=== PATIENT | male | born 1940 | race Two or more races ===

== ENCOUNTER → 2016-09-25 | Outpatient (CLI) | payer OTHER ==
[~2016-09-25] MED LIST: ALBUTEROL SULF 2.5 MG/0.5ML(0.5%) NEB SOLN ONE; ATEN100T OR; ATOR10TA OR; DIPH2.5T73 OR; FLUT125C OR; GEMF600T3 OR; PAROXETIN; [UNRECOGNIZED DRUG - OTHER]
== END | disposition home or self-care (01) ==
LOC: RT 08:30
PROVIDERS: ATTEND Internal Medicine
DX: R06.02 Shortness of breath (principal)
CPT/HCPCS: 94060

== ENCOUNTER → 2017-02-19 | Outpatient (CLI) | payer OTHER ==
[~2017-02-19] VITALS: Ht 177.8 cm; Wt 74.8 kg
[~2017-02-19] MED LIST changes: +ADENOSINE 63 MG in GIVE UN-DILUTED 0 ML IV ONE; -ALBUTEROL SULF 2.5 MG/0.5ML(0.5%) NEB SOLN ONE; -FLUT125C OR; +[UNRECOGNIZED DRUG - CODE] OR
== END | disposition home or self-care (01) ==
LOC: XYW 08:09
PROVIDERS: ATTEND Internal Medicine Cardiovascular Disease
DX: I20.8 Other forms of angina pectoris (principal)
CPT/HCPCS: 78452; 93017; A9500; J0153

== ENCOUNTER → 2017-03-05 | Outpatient (CLI) | payer OTHER ==
[~2017-03-05] MED LIST changes: -ADENOSINE 63 MG in GIVE UN-DILUTED 0 ML IV ONE
[2017-03-05 10:44] LABS: Basophils # (auto) 0 uL; Basophils % (auto) 0.6 % (0.0-2.0); Eosinophils # (auto) 0.1 uL; Eosinophils % (auto) 1.6 % (0.0-7.0); Hemoglobin 15.2 g/dL (13.5-17.5); Lymphocytes # (auto) 1.3 uL; Mean Corpuscular Hemoglobin 33.8 pg (28.0-32.0); Mean Corpuscular Hgb Conc. 33.8 g/dL (32.0-36.0); Mean Platelet Volume 7.2 fL (6.9-10.8); Monocytes # (auto) 0.6 uL; Monocytes % (auto) 9.3 % (0.0-12.0); Neutrophils # (auto) 4.2 uL; Neutrophils % (auto) 67.5 % (37.0-80.0); Nucleated Red Blood Cells % 0.1 %; Platelet Count (auto) 275 10^3/uL (140-450); Red Cell Distribution Width 12.7 % (11.8-14.3); White Blood Cell 6.3 10^3/uL (4.4-10.8)
[2017-03-05 11:09] LABS: Albumin 4.5 g/dL (3.4-5.0); BUN/Creatinine Ratio 22.4; Bilirubin, Total 0.7 mg/dL (0.2-1.0); Potassium 4.1 mmol/L (3.5-5.1); Total Protein 7.9 g/dL (6.4-8.2)
== END | disposition home or self-care (01) ==
LOC: LAB 10:24
PROVIDERS: ATTEND Radiology Radiation Oncology
DX: K51.90 Ulcerative colitis, unspecified, without complications (principal); C61 Malignant neoplasm of prostate
CPT/HCPCS: 36415; 80053; 84153; 84154; 85025

== ENCOUNTER → 2017-04-22 | Outpatient (CLI) | payer OTHER | END | disposition home or self-care (01) | LOC: LAB 08:43 | PROVIDERS: ATTEND Radiology Radiation Oncology | DX: C61 Malignant neoplasm of prostate (principal) | CPT/HCPCS: 84153 ==

== ENCOUNTER → 2017-07-25 | Outpatient (CLI) | payer OTHER ==
[2017-07-25 09:30] LABS: Basophils # (auto) 0 uL; Basophils % (auto) 0.6 % (0.0-2.0); Eosinophils # (auto) 0.2 uL; Eosinophils % (auto) 5.2 % (0.0-7.0); Hematocrit 45.8 % (41.0-53.0); Hemoglobin 15.6 g/dL (13.5-17.5); Lymphocytes # (auto) 1.1 uL; Lymphocytes % (auto) 25.4 % (10.0-50.0); Mean Corpuscular Hemoglobin 33.9 pg (28.0-32.0); Mean Corpuscular Hgb Conc. 34.1 g/dL (32.0-36.0); Mean Corpuscular Volume 99.6 fL (80.0-100.0); Monocytes # (auto) 0.5 uL; Monocytes % (auto) 10.3 % (0.0-12.0); Neutrophils # (auto) 2.6 uL; Neutrophils % (auto) 58.5 % (37.0-80.0); Nucleated Red Blood Cells % 0.1 %; Platelet Count (auto) 234 10^3/uL (140-450); Red Blood Cells 4.59 10^6/uL (4.5-5.90); Red Cell Distribution Width 12.9 % (11.8-14.3); White Blood Cell 4.5 10^3/uL (4.4-10.8)
[2017-07-25 09:58] LABS: Albumin 4.4 g/dL (3.4-5.0)
[2017-07-25 10:00] LABS: BUN/Creatinine Ratio 19.6
[2017-07-25 10:02] LABS: Ferritin 350.9 ng/mL (10-322)
[2017-07-25 10:03] LABS: Folate (Folic Acid) > 24.00 ng/mL (5.38-24)
[2017-07-25 10:10] LABS: Prostate Specific Antigen 9.28 ng/mL (0.0-4.0)
[2017-07-25 10:29] LABS: Bilirubin, Total 0.5 mg/dL (0.2-1.0); Calcium 9.2 mg/dL (8.5-10.1); Total Protein 7.6 g/dL (6.4-8.2)
== END | disposition home or self-care (01) ==
LOC: LAB 08:38
PROVIDERS: ATTEND Internal Medicine
DX: Z12.5 Encounter for screening for malignant neoplasm of prostate (principal); I10 Essential (primary) hypertension; E78.5 Hyperlipidemia, unspecified; E03.9 Hypothyroidism, unspecified
CPT/HCPCS: 36415; 80053; 80061; 82306; 82607; 82728; 82746; 84153; 84154; 84443; 85025

== ENCOUNTER → 2017-08-29 | Outpatient (CLI) | payer OTHER ==
[2017-08-29 11:43] LABS: Basophils # (auto) 0 uL; Basophils % (auto) 0.5 % (0.0-2.0); Eosinophils # (auto) 0.1 uL; Hematocrit 44.2 % (41.0-53.0); Hemoglobin 15.4 g/dL (13.5-17.5); Lymphocytes # (auto) 1.1 uL; Lymphocytes % (auto) 21.1 % (10.0-50.0); Mean Corpuscular Hgb Conc. 34.8 g/dL (32.0-36.0); Mean Corpuscular Volume 97.5 fL (80.0-100.0); Monocytes # (auto) 0.4 uL; Monocytes % (auto) 8.4 % (0.0-12.0); Neutrophils # (auto) 3.6 uL; Platelet Count (auto) 249 10^3/uL (140-450); Red Blood Cells 4.53 10^6/uL (4.5-5.90); White Blood Cell 5.3 10^3/uL (4.4-10.8)
[2017-08-29 12:20] LABS: Albumin 4.6 g/dL (3.4-5.0); BUN/Creatinine Ratio 18.4; Bilirubin, Total 0.8 mg/dL (0.2-1.0); Potassium 3.9 mmol/L (3.5-5.1)
== END | disposition home or self-care (01) ==
LOC: LAB 11:22
PROVIDERS: ATTEND Internal Medicine
DX: C61 Malignant neoplasm of prostate (principal)
CPT/HCPCS: 36415; 80053; 83615; 84153; 84154; 85025

== ENCOUNTER → 2017-09-12 | Outpatient (CLI) | payer OTHER | END | disposition home or self-care (01) | LOC: LAB 09:16 | PROVIDERS: ATTEND Internal Medicine | DX: Z01.812 Encounter for preprocedural laboratory examination (principal); I10 Essential (primary) hypertension; E78.5 Hyperlipidemia, unspecified; Z85.46 Personal history of malignant neoplasm of prostate | CPT/HCPCS: 36415; 82565; 84520 ==

== ENCOUNTER → 2017-09-18 | Outpatient (CLI) | payer OTHER ==
[~2017-09-18] MED LIST changes: +ASPI81TA27 PO; +BICA50TA7 PO; +LISI-646 PO; +PAR20T PO; +SULF500T8 PO
== END | disposition home or self-care (01) ==
LOC: XY 08:09
PROVIDERS: ATTEND Internal Medicine
DX: C61 Malignant neoplasm of prostate (principal)
CPT/HCPCS: 78306; A9503

== ENCOUNTER → 2017-09-18 | Outpatient (CLI) | payer OTHER ==
[2017-09-18 12:54] LABS: Basophils # (auto) 0 uL; Basophils % (auto) 0.4 % (0.0-2.0); Eosinophils # (auto) 0.1 uL; Eosinophils % (auto) 1.4 % (0.0-7.0); Hematocrit 48.3 % (41.0-53.0); Hemoglobin 16.6 g/dL (13.5-17.5); Lymphocytes # (auto) 1.4 uL; Lymphocytes % (auto) 23.2 % (10.0-50.0); Mean Corpuscular Hemoglobin 33.9 pg (28.0-32.0); Mean Corpuscular Hgb Conc. 34.4 g/dL (32.0-36.0); Mean Corpuscular Volume 98.7 fL (80.0-100.0); Monocytes # (auto) 0.6 uL; Monocytes % (auto) 9.6 % (0.0-12.0); Neutrophils # (auto) 3.9 uL; Neutrophils % (auto) 65.4 % (37.0-80.0); Platelet Count (auto) 247 10^3/uL (140-450); Red Blood Cells 4.89 10^6/uL (4.5-5.90); White Blood Cell 5.9 10^3/uL (4.4-10.8)
[2017-09-18 12:57] LABS: Albumin 4.9 g/dL (3.4-5.0); Bilirubin, Total 0.6 mg/dL (0.2-1.0); Calcium 9.6 mg/dL (8.5-10.1); Potassium 4.8 mmol/L (3.5-5.1); Total Protein 8.7 g/dL (6.4-8.2)
== END | disposition home or self-care (01) ==
LOC: LAB 12:04
PROVIDERS: ATTEND Internal Medicine
DX: C61 Malignant neoplasm of prostate (principal); I10 Essential (primary) hypertension; E78.5 Hyperlipidemia, unspecified
CPT/HCPCS: 36415; 80053; 83615; 84153; 85025

== ENCOUNTER → 2017-09-23 | Day surgery (SDC) | payer OTHER ==
[2017-09-19 10:15] LABS: Basophils # (auto) 0 uL; Basophils % (auto) 0.7 % (0.0-2.0); Eosinophils # (auto) 0.2 uL; Eosinophils % (auto) 4.2 % (0.0-7.0); Hematocrit 44.1 % (41.0-53.0); Hemoglobin 15.3 g/dL (13.5-17.5); Lymphocytes # (auto) 0.9 uL; Lymphocytes % (auto) 20.9 % (10.0-50.0); Mean Corpuscular Hemoglobin 33.7 pg (28.0-32.0); Mean Corpuscular Hgb Conc. 34.7 g/dL (32.0-36.0); Mean Corpuscular Volume 97.2 fL (80.0-100.0); Monocytes # (auto) 0.4 uL; Monocytes % (auto) 9.5 % (0.0-12.0); Neutrophils # (auto) 2.7 uL; Neutrophils % (auto) 64.7 % (37.0-80.0); Nucleated Red Blood Cells % 0.1 %; Platelet Count (auto) 230 10^3/uL (140-450); Red Blood Cells 4.53 10^6/uL (4.5-5.90); Red Cell Distribution Width 12.8 % (11.8-14.3); Urine Bacteria NONE SEEN /hpf (None Seen); Urine Blood Negative /uL (Negative); Urine Mucus FEW (None Seen); Urine Specific Gravity 1.036 (1.001-1.035); Urine WBC <1 /hpf (0 - 3); White Blood Cell 4.2 10^3/uL (4.4-10.8)
[2017-09-19 10:32] LABS: Albumin 4.3 g/dL (3.4-5.0); BUN/Creatinine Ratio 14.4; Bilirubin, Total 0.6 mg/dL (0.2-1.0); Calcium 8.9 mg/dL (8.5-10.1); Potassium 3.8 mmol/L (3.5-5.1); Total Protein 7.5 g/dL (6.4-8.2)
[2017-09-19 10:33] LABS: INR 0.96 (0.9-1.15); Partial Thromboplastin Time 24.4 sec (22.64-33.71); Prothrombin Time 10.5 sec (9.37-12.3)
[~2017-09-23] VITALS: Ht 177.8 cm; Wt 77.1 kg
[~2017-09-23] MED LIST changes: -ATEN100T OR; +CIPROFLOXACIN 400MG/200ML 200 ML IV ONE; +DEXAMETHASONE SOD PHOS 10MG/1ML VIAL INJ ONE; -DIPH2.5T73 OR; +KETOROLAC TROMETH 30 MG/ML 1ML VIAL IV ONE; +LABETALOL HCL 5 MG/ML 4ML SYRINGE IV PRN; +MIDAZOLAM HCL 1MG/1ML-2 ML VIAL IV PRN; +MIDAZOLAM HCL 1MG/1ML-2 ML VIAL ONE; +MORPHINE SULFATE 8mg/ml INJ SDV IV ONE; +MORPHINE SULFATE 8mg/ml INJ SDV IV PRN; +ONDANSETRON HCL 4 MG/2 ML VIAL IV ONE; -PAROXETIN; +PROPOFOL 10 MG/ML 20 ML IV ONE; -[UNRECOGNIZED DRUG - CODE] OR; -[UNRECOGNIZED DRUG - OTHER]; +ePHEDrine SULFATE 50 MG/ML AMP IV PRN; +fentaNYL CITRATE 100 MCG/2 ML VL IV ONE; +fentaNYL CITRATE 100 MCG/2 ML VL ONE
[2017-09-23 08:31] VITALS: BP 130/73
== END | disposition home or self-care (01) ==
LOC: SUR 06:46
PROVIDERS: ATTEND Urology
DX: R97.20 Elevated prostate specific antigen [PSA] (principal); I10 Essential (primary) hypertension; J44.9 Chronic obstructive pulmonary disease, unspecified; I25.10 Atherosclerotic heart disease of native coronary artery without angina pectoris; Z87.891 Personal history of nicotine dependence; E78.5 Hyperlipidemia, unspecified
CPT/HCPCS: 36415; 55706; 80053; 81001; 85025; 85610; 85730; 88304; 88342; J0744; J1100; J2250; J2704; J3010

== ENCOUNTER → 2018-02-28 | Outpatient (CLI) | payer OTHER ==
[~2018-02-28] MED LIST changes: +BICA50TA13 PO; -BICA50TA7 PO; -CIPROFLOXACIN 400MG/200ML 200 ML IV ONE; -DEXAMETHASONE SOD PHOS 10MG/1ML VIAL INJ ONE; -GEMF600T3 OR; +GEMF600T7 OR; -KETOROLAC TROMETH 30 MG/ML 1ML VIAL IV ONE; -LABETALOL HCL 5 MG/ML 4ML SYRINGE IV PRN; -MIDAZOLAM HCL 1MG/1ML-2 ML VIAL IV PRN; -MIDAZOLAM HCL 1MG/1ML-2 ML VIAL ONE; -MORPHINE SULFATE 8mg/ml INJ SDV IV ONE; -MORPHINE SULFATE 8mg/ml INJ SDV IV PRN; -ONDANSETRON HCL 4 MG/2 ML VIAL IV ONE; -PROPOFOL 10 MG/ML 20 ML IV ONE; -ePHEDrine SULFATE 50 MG/ML AMP IV PRN; -fentaNYL CITRATE 100 MCG/2 ML VL IV ONE; -fentaNYL CITRATE 100 MCG/2 ML VL ONE
[2018-02-28 10:30] LABS: Basophils # (auto) 0 uL; Basophils % (auto) 0.5 % (0.0-2.0); Eosinophils # (auto) 0.1 uL; Eosinophils % (auto) 2.3 % (0.0-7.0); Hematocrit 45.6 % (41.0-53.0); Hemoglobin 15.5 g/dL (13.5-17.5); Lymphocytes # (auto) 1.1 uL; Lymphocytes % (auto) 17.1 % (10.0-50.0); Mean Corpuscular Hemoglobin 33.6 pg (28.0-32.0); Mean Corpuscular Volume 98.9 fL (80.0-100.0); Monocytes # (auto) 0.5 uL; Monocytes % (auto) 8.5 % (0.0-12.0); Neutrophils # (auto) 4.5 uL; Neutrophils % (auto) 71.6 % (37.0-80.0); Nucleated Red Blood Cells % 0.2 %; Platelet Count (auto) 259 10^3/uL (140-450); Red Blood Cells 4.61 10^6/uL (4.5-5.90); Red Cell Distribution Width 12.6 % (11.8-14.3); White Blood Cell 6.3 10^3/uL (4.4-10.8)
[2018-02-28 10:32] LABS: Urine Blood Negative /uL (Negative); Urine Specific Gravity 1.033 (1.001-1.035)
[2018-02-28 11:01] LABS: BUN/Creatinine Ratio 18.3; Calcium 9.5 mg/dL (8.5-10.1); Potassium 4.4 mmol/L (3.5-5.1)
== END | disposition home or self-care (01) ==
LOC: LAB 10:06
PROVIDERS: ATTEND Internal Medicine
DX: Z01.812 Encounter for preprocedural laboratory examination (principal)
CPT/HCPCS: 36415; 80048; 81003; 85025

== ENCOUNTER → 2018-03-25 | Outpatient (CLI) | payer OTHER ==
[2018-03-25 09:32] LABS: Basophils # (auto) 0 uL; Basophils % (auto) 0.6 % (0.0-2.0); Eosinophils # (auto) 0.1 uL; Eosinophils % (auto) 2.6 % (0.0-7.0); Hematocrit 41.8 % (41.0-53.0); Hemoglobin 14.5 g/dL (13.5-17.5); Lymphocytes # (auto) 0.7 uL; Lymphocytes % (auto) 20.4 % (10.0-50.0); Mean Corpuscular Hgb Conc. 34.8 g/dL (32.0-36.0); Mean Corpuscular Volume 97.7 fL (80.0-100.0); Monocytes # (auto) 0.3 uL; Monocytes % (auto) 9.4 % (0.0-12.0); Neutrophils # (auto) 2.3 uL; Nucleated Red Blood Cells % 0.1 %; Platelet Count (auto) 204 10^3/uL (140-450); Red Blood Cells 4.27 10^6/uL (4.5-5.90); Red Cell Distribution Width 12.7 % (11.8-14.3); White Blood Cell 3.5 10^3/uL (4.4-10.8)
[2018-03-25 10:30] LABS: Albumin 4.3 g/dL (3.4-5.0); Calcium 8.9 mg/dL (8.5-10.1); Potassium 3.9 mmol/L (3.5-5.1)
[2018-03-25 10:34] LABS: BUN/Creatinine Ratio 13.3; Bilirubin, Total 0.8 mg/dL (0.2-1.0); Total Protein 7.5 g/dL (6.4-8.2)
== END | disposition home or self-care (01) ==
LOC: LAB 09:16
PROVIDERS: ATTEND Internal Medicine
DX: C61 Malignant neoplasm of prostate (principal)
CPT/HCPCS: 36415; 80053; 83615; 84153; 85025

== ENCOUNTER → 2018-04-29 | Outpatient (CLI) | payer OTHER ==
[2018-04-29 09:18] LABS: Basophils # (auto) 0 uL; Eosinophils # (auto) 0.1 uL; Eosinophils % (auto) 4.1 % (0.0-7.0); Hemoglobin 14.9 g/dL (13.5-17.5); Lymphocytes # (auto) 0.7 uL; Mean Corpuscular Hemoglobin 35.2 pg (28.0-32.0); Mean Corpuscular Hgb Conc. 34.9 g/dL (32.0-36.0); Monocytes # (auto) 0.3 uL; Nucleated Red Blood Cells % 0.1 %; White Blood Cell 3.1 10^3/uL (4.4-10.8)
[2018-04-29 09:19] LABS: Basophils % (auto) 0.7 % (0.0-2.0); Hematocrit 42.6 % (41.0-53.0); Lymphocytes % (auto) 21.7 % (10.0-50.0); Mean Corpuscular Volume 100.8 fL (80.0-100.0); Monocytes % (auto) 9.5 % (0.0-12.0); Platelet Count (auto) 219 10^3/uL (140-450); Red Blood Cells 4.22 10^6/uL (4.5-5.90); Red Cell Distribution Width 12.7 % (11.8-14.3)
[2018-04-29 09:21] LABS: Urine Blood Negative /uL (Negative); Urine Specific Gravity 1.036 (1.001-1.035)
[2018-04-29 09:51] LABS: Albumin 4.5 g/dL (3.4-5.0); Potassium 3.8 mmol/L (3.5-5.1)
[2018-04-29 09:56] LABS: BUN/Creatinine Ratio 20.3; Bilirubin, Total 0.8 mg/dL (0.2-1.0); Total Protein 7.6 g/dL (6.4-8.2)
[2018-04-29 10:00] LABS: INR 3.31 (0.9-1.15)
[2018-04-29 11:03] LABS: Partial Thromboplastin Time > 170.00 sec (23.78-33.04)
== END | disposition home or self-care (01) ==
LOC: LAB 08:54
PROVIDERS: ATTEND Specialist
DX: Z01.812 Encounter for preprocedural laboratory examination (principal); H25.12 Age-related nuclear cataract, left eye; D68.311 Acquired hemophilia; Z79.01 Long term (current) use of anticoagulants
CPT/HCPCS: 36415; 80053; 81003; 85025; 85610; 85730

== ENCOUNTER → 2018-05-26 | Outpatient (CLI) | payer OTHER ==
[~2018-05-26] MED LIST changes: +FOLI1TAB6 PO; +MELA10CA OR
[2018-05-26 12:09] LABS: Basophils # (auto) 0 uL; Hemoglobin 15.8 g/dL (13.5-17.5); Lymphocytes # (auto) 0.9 uL; Monocytes # (auto) 0.4 uL
[2018-05-26 12:14] LABS: Basophils % (auto) 0.4 % (0.0-2.0); Eosinophils # (auto) 0.2 uL; Eosinophils % (auto) 3.4 % (0.0-7.0); Hematocrit 45.8 % (41.0-53.0); Lymphocytes % (auto) 20.8 % (10.0-50.0); Mean Corpuscular Hemoglobin 34.5 pg (28.0-32.0); Mean Corpuscular Hgb Conc. 34.5 g/dL (32.0-36.0); Monocytes % (auto) 9.7 % (0.0-12.0); Neutrophils # (auto) 2.9 uL; Neutrophils % (auto) 65.7 % (37.0-80.0); Platelet Count (auto) 257 10^3/uL (140-450); Red Blood Cells 4.58 10^6/uL (4.5-5.90); Red Cell Distribution Width 12.1 % (11.8-14.3); White Blood Cell 4.4 10^3/uL (4.4-10.8)
[2018-05-26 12:16] LABS: INR 0.98 (0.9-1.15); Prothrombin Time 10.5 sec (9.27-12.13)
[2018-05-26 13:27] LABS: Albumin 4.7 g/dL (3.4-5.0); BUN/Creatinine Ratio 19.8; Calcium 9.6 mg/dL (8.5-10.1); Potassium 4.2 mmol/L (3.5-5.1)
[2018-05-26 13:29] LABS: Bilirubin, Total 0.9 mg/dL (0.2-1.0); Total Protein 8.1 g/dL (6.4-8.2)
== END | disposition home or self-care (01) ==
LOC: LAB 11:10
PROVIDERS: ATTEND Internal Medicine
DX: Z01.818 Encounter for other preprocedural examination (principal)
CPT/HCPCS: 36415; 80053; 85025; 85610; 85730

== ENCOUNTER 2018-05-28 09:26 | Inpatient (IN) | payer OTHER ==
[~2018-05-28] VITALS: Ht 177.8 cm; Wt 72.2 kg
[2018-05-28] MEDS: LISINOPRIL 20 MG TAB PO SCH (10:00)
[2018-05-28] MEDS: FOLIC ACID 1 MG TAB PO SCH (10:00)
[2018-05-28] MEDS ORDERED: IOHEXOL 350 MG/ML 100ML IJ ONE (12:05)
[2018-05-28] MEDS ORDERED: LIDOCAINE 2%HCL (LOCAL ANESTH.) INJ 20ML MDV ONE (12:05)
[2018-05-28] MEDS ORDERED: fentaNYL CITRATE 100 MCG/2 ML VL ONE (12:36)
[2018-05-28] MEDS ORDERED: MIDAZOLAM HCL 1MG/1ML-2 ML VIAL ONE (12:36)
[2018-05-28] MEDS ORDERED: SODIUM CHL 0.9% 0 ML ONE (12:36)
[2018-05-28] MEDS ORDERED: ANGIOMAX 250 MG VIAL IV ONE (12:36)
[2018-05-28] MEDS ORDERED: ACETAMINOPHEN 500 MG TAB PO PRN (13:15)
[2018-05-28] MEDS ORDERED: LORazepam 0.5 MG TAB PO PRN (13:15)
[2018-05-28] MEDS ORDERED: ZOLPIDEM TARTRATE 5 MG TAB PO PRN (13:15)
[2018-05-28] MEDS ORDERED: NITROGLYCERIN 0.4 MG SL TAB SL PRN (13:15)
[2018-05-28] MEDS ORDERED: HYDROcodone-ACET 5/325MG TAB PO PRN (13:15)
[2018-05-28] MEDS ORDERED: MORPHINE SULFATE 4 MG/ML SYR/VIAL IV PRN (13:15)
[2018-05-28] MEDS ORDERED: ENOXAPARIN SOD 100 MG/1 ML SYRINGE SC ONE (13:45)
[2018-05-28] MEDS ORDERED: PARoxetine 20 MG TAB PO ONE (13:45)
[2018-05-28] MEDS ORDERED: LISINOPRIL 20 MG TAB PO ONE (13:45)
[2018-05-28] MEDS ORDERED: BICALUTAMIDE 50 MG TAB PO ONE (13:45)
[2018-05-28] MEDS ORDERED: GEMFIBROZIL 600 MG TAB PO ONE (13:45)
[2018-05-28] MEDS ORDERED: FOLIC ACID 1 MG TAB PO ONE (13:45)
[2018-05-28] MEDS ORDERED: BICALUTAMIDE 50 MG PO SCH (14:00)
[2018-05-28] MEDS: SULFASALAZINE 500 MG TAB PO SCH ×2 (14:00→21:25)
--- NOTE | 2018-05-28 15:47 | NUR ---
Telemetry admit from garage laborer REBECCA HENAO admitted to Telemetry unit after SBAR received. Patient oriented to KALIE BONILLA, RN primary RN, unit, room, bed, and unit policies regarding patient care and visiting hours. Patient now on continuous telemetry monitoring, tele box # 9 and telemetry reading on arrival to unit is Sinus Rhythm 56 with BBB. Patient placed on bedside oxygen, weighed by bedscale and encouraged to call if they need something. All questions and concerns addressed, patient verbalized understanding.
[2018-05-28 16:45] VITALS: BP_SYST 140; BP_SYST 148; BP_DIAS 60; BP_DIAS 75
--- NOTE | 2018-05-28 19:30 | NUR ---
OPENING SHIFT NOTE RECEIVED PATIENT LYING IN BED, AWAKE, ALERT, ORIENTED X4. NO S/S OF RESPIRATORY DISTRESS, DENIES SOB AND CHEST PAIN. S/P LEFT HEART CATH TODAY, WITH DRESSING ON THE RIGHT GROIN, DRY, INTACT, NO BLEEDING. ORIENTED ON PLAN OF CARE. BED IS LOCKED AND IN LOWEST LEVEL, SIDE RAILS UP X2, CALL LIGHT WITHIN REACH. WILL CONTINUE TO MONITOR
[2018-05-28] MEDS: GEMFIBROZIL 600 MG TAB PO SCH (21:25)
[2018-05-28] MEDS: ATORVASTATIN 20 MG TAB PO SCH (21:26)
[2018-05-28] MEDS: ENOXAPARIN SOD 100 MG/1 ML SYRINGE SC SCH (21:27)
[2018-05-28 21:48] VITALS: BP 148/72
[2018-05-29 00:10] VITALS: BP_SYST 129; BP_SYST 132; BP_DIAS 62; BP_DIAS 69
[2018-05-29 05:08] VITALS: BP_SYST 123; BP_SYST 128; BP_DIAS 53; BP_DIAS 62
[2018-05-29] MEDS: SULFASALAZINE 500 MG TAB PO SCH ×3 (05:59→22:01)
[2018-05-29] MEDS ORDERED: VANCOMYCIN 1GM/250ML 250 ML IV ONE (07:00)
--- NOTE | 2018-05-29 07:15 | NUR ---
OPENING SHIFT NOTE ASSUMED CARE OF PATIENT FROM MANAGER NEW PRODUCT RN HALI. PATIENT IS AWAKE AND ALERT X4. PATIENT HAS NO S/S OF DISTRESS/SOB OR PAIN. INSTRUCTED PATIENT ON POC, PATIENT VERBALIZED UNDERSTANDING. BED IS IN LOWEST POSITION WITH SIDE RAILS RAISED X2, BED WHEELS LOCKED, AND CALL LIGHT WITHIN REACH. WILL CONTINUE TO MONITOR
--- NOTE | 2018-05-29 07:29 | NUR ---
REPORT GIVEN TO AM SHIFT RN
[2018-05-29 07:46] VITALS: BP 123/60
[2018-05-29] MEDS ORDERED: ceFAZolin 1GM 2 GM in D5W 5% 50 ML IV ONE (08:00)
[2018-05-29 08:53] VITALS: BP_SYST 123; BP_SYST 126; BP_DIAS 60; BP_DIAS 66
[2018-05-29] MEDS: FOLIC ACID 1 MG TAB PO SCH (09:56)
[2018-05-29] MEDS: LISINOPRIL 20 MG TAB PO SCH (09:57)
[2018-05-29] MEDS: GEMFIBROZIL 600 MG TAB PO SCH ×2 (09:58→22:02)
[2018-05-29] MEDS: ENOXAPARIN SOD 100 MG/1 ML SYRINGE SC SCH (09:58)
[2018-05-29] MEDS ORDERED: PARoxetine 20 MG TAB PO SCH (10:00)
[2018-05-29] MEDS ORDERED: BICALUTAMIDE 50 MG TAB PO SCH (10:00)
--- NOTE | 2018-05-29 13:00 | NUR ---
PATIENT'S HOME MEDICATIONS TAKEN TO PHARMACY
[2018-05-29 14:04] VITALS: BP_SYST 135; BP_DIAS 70; BP_DIAS 76
--- NOTE | 2018-05-29 15:50 | NUR ---
MD MALIK AND LAB AT BEDSIDE. INFORMED MD OF PATIENT'S ADVANCE DIRECTIVES AND UPDATED MD ON PATIENT'S STATUS. MD IS AWARE. NO NEW ORDERS GIVEN AT THIS TIME
[2018-05-29 16:14] LABS: Urine Bacteria NONE SEEN /hpf (None Seen); Urine Blood Negative /uL (Negative); Urine Specific Gravity 1.012 (1.001-1.035); Urine WBC 1 /hpf (0 - 3)
[2018-05-29 16:15] LABS: Basophils # (auto) 0 uL; Mean Corpuscular Hemoglobin 34.3 pg (28.0-32.0); Monocytes # (auto) 0.5 uL; Red Cell Distribution Width 12.2 % (11.8-14.3)
[2018-05-29 16:17] LABS: Eosinophils # (auto) 0.1 uL; Eosinophils % (auto) 3.5 % (0.0-7.0); Hematocrit 41.9 % (41.0-53.0); Hemoglobin 14.4 g/dL (13.5-17.5); Mean Corpuscular Hgb Conc. 34.3 g/dL (32.0-36.0); Mean Corpuscular Volume 99.9 fL (80.0-100.0); Monocytes % (auto) 11.5 % (0.0-12.0); Neutrophils # (auto) 2.6 uL; Platelet Count (auto) 205 10^3/uL (140-450); White Blood Cell 4.3 10^3/uL (4.4-10.8)
--- NOTE | 2018-05-29 16:20 | NUR ---
MD WORLEY AT BEDSIDE. INFORMING PATIENT OF SURGERY. UPDATED MD ON PATIENT'S STATUS. WILL FOLLOW THROUGH WITH NEW ORDERS
[2018-05-29 16:22] VITALS: BP_SYST 132; BP_SYST 136; BP_DIAS 64; BP_DIAS 70
[2018-05-29 16:22] LABS: Partial Thromboplastin Time 30.1 sec (23.78-33.04); Prothrombin Time 10.7 sec (9.27-12.13)
[2018-05-29 16:32] LABS: Albumin 4.3 g/dL (3.4-5.0); Calcium 9.1 mg/dL (8.5-10.1); Potassium 4.2 mmol/L (3.5-5.1)
[2018-05-29 16:37] LABS: BUN/Creatinine Ratio 17.3; Bilirubin, Total 0.6 mg/dL (0.2-1.0); Total Protein 7.6 g/dL (6.4-8.2)
--- NOTE | 2018-05-29 19:30 | NUR ---
OPENING SHIFT NOTE RECEIVED PATIENT LYING IN BED, AWAKE, ALERT, ORIENTED X4, AMBULATORY. NO S/S OF RESPIRATORY DISTRESS, DENIES SOB AND CHEST PAIN. ORIENTED ON PLAN OF CARE. BED IS LOCKED AND IN LOWEST LEVEL, SIDE RAILS UP X2, CALL LIGHT WITHIN REACH. WILL CONTINUE TO MONITOR
--- NOTE | 2018-05-29 19:39 | NUR ---
CLOSING SHIFT NOTE ENDORSED CARE TO PATIENT RELATIONS COORDINATOR RN HALI. PATIENT HAS NO S/S OF DISTRESS/SOB OR PAIN. INFORMED RN PATIENT'S ANTIBIOTICS ARE ON THE NON FRIDGE IV CASSETTE IN [facility] AND NEED TO BE TAKEN DOWN WITH PATIENT ONCE HE IS TRANSFERRED TO ICU. RN IS AWARE
[2018-05-29] MEDS ORDERED: ENOXAPARIN SOD 80 MG/0.8ML SYRINGE SC SCH (22:00)
[2018-05-29] MEDS ORDERED: ASCORBIC ACID 500 MG TAB PO ONE (22:00)
--- NOTE | 2018-05-29 22:00 | NUR ---
MRSA SWAB SAMPLE SENT TO LAB
[2018-05-29] MEDS: ATORVASTATIN 20 MG TAB PO SCH (22:02)
--- NOTE | 2018-05-29 22:21 | NUR ---
REPORT RECEIVED FROM AUDIT MGR HALI VIA TELEPHONE. PT AWAITING TRANSPORT TO ICU BED 111.
--- NOTE | 2018-05-29 22:45 | NUR ---
REPORT GIVEN TO NEGRITO CHEW, TRANSFERRED TO ICU
--- NOTE | 2018-05-29 23:55 | NUR ---
PT WATCHED PRE-OP OPEN HEART INFORMATIONAL VIDEO. ALL QUESTIONS ANSWERED.
[2018-05-30] VITALS (69 sets, daily range): BP systolic 0–172; BP diastolic 0–99
[2018-05-30] MEDS ORDERED: CHLORHEXIDINE 4% TOPICAL soln 237ML TOP ONE (02:00)
[2018-05-30 03:57] LABS: BUN/Creatinine Ratio 19.6; Calcium 8.5 mg/dL (8.5-10.1); Potassium 3.9 mmol/L (3.5-5.1)
[2018-05-30 04:03] LABS: INR 0.96 (0.9-1.15); Partial Thromboplastin Time 23.9 sec (23.78-33.04); Prothrombin Time 10.3 sec (9.27-12.13)
[2018-05-30 04:30] LABS: Basophils # (auto) 0 uL; Eosinophils # (auto) 0.2 uL; Monocytes # (auto) 0.5 uL; Red Cell Distribution Width 12.1 % (11.8-14.3); White Blood Cell 4.8 10^3/uL (4.4-10.8)
[2018-05-30 04:35] LABS: Basophils % (auto) 0.3 % (0.0-2.0); Eosinophils % (auto) 3.6 % (0.0-7.0); Hematocrit 41.7 % (41.0-53.0); Hemoglobin 13.8 g/dL (13.5-17.5); Lymphocytes % (auto) 20.5 % (10.0-50.0); Mean Corpuscular Hemoglobin 33.8 pg (28.0-32.0); Mean Corpuscular Hgb Conc. 33.1 g/dL (32.0-36.0); Mean Corpuscular Volume 102.1 fL (80.0-100.0); Monocytes % (auto) 9.9 % (0.0-12.0); Neutrophils # (auto) 3.2 uL; Neutrophils % (auto) 65.7 % (37.0-80.0); Platelet Count (auto) 180 10^3/uL (140-450); Red Blood Cells 4.09 10^6/uL (4.5-5.90)
[2018-05-30] MEDS ORDERED: CHLORHEXIDINE 0.12% ORAL rinse 473ML MT ONE (05:00)
[2018-05-30] MEDS: SULFASALAZINE 500 MG TAB PO SCH (06:00)
[2018-05-30] MEDS ORDERED: NITROGLYCERIN 50MG/250ML 250 ML IV ONE (06:05)
[2018-05-30] MEDS ORDERED: PAPAVERINE HCL 60 MG/2 ML 2ML VIAL ONE (06:19)
[2018-05-30] MEDS ORDERED: NEOMYCIN-BACITRACIN-POLYM 15GM TOP OINT TOP ONE (06:19)
[2018-05-30] MEDS ORDERED: HEPARIN 1,000 UNITS/ml 1ML VIAL ONE (06:19)
[2018-05-30] MEDS ORDERED: BACITRACIN INJ 50000 UNIT VIAL ONE (06:20)
[2018-05-30] MEDS ORDERED: VANCOMYCIN 1GM/250ML 250 ML IV ONE (07:00)
[2018-05-30] MEDS ORDERED: ceFAZolin 1GM 2 GM in D5W 5% 50 ML IV ONE (07:00)
--- NOTE | 2018-05-30 07:35 | NUR ---
PT TRANSFERRED TO OR, ENDORSED CARE TO EQUINE SCIENCE INSTRUCTORNEGRITO TORRES.
[2018-05-30] MEDS ORDERED: MIDAZOLAM HCL 1MG/1ML-2 ML VIAL ONE (07:55)
[2018-05-30] MEDS ORDERED: fentaNYL CITRATE 10 ML ONE (07:55)
[2018-05-30] MEDS ORDERED: PROPOFOL 10 MG/ML 20 ML IV ONE ×3 (07:55→13:47)
[2018-05-30] MEDS ORDERED: ROCURONIUM 10MG/ML 10ML VIAL IV ONE (07:55)
[2018-05-30] MEDS ORDERED: InsuLIN R (HUMAN) 100 UNITS in SODIUM CHL 0.9% 99 ML IV ONE (08:00)
[2018-05-30] MEDS ORDERED: TRANEXAMIC ACID 1,000 mg/10ml INJ VIAL IV ONE ×2 (08:00→17:09)
[2018-05-30] MEDS ORDERED: ACCU-CHEK COMFORT CURVE STRIP VI ONE (08:00)
[2018-05-30] MEDS ORDERED: PHENYLEPHRINE INJ 20 MG in SODIUM CHL 0.9% 250 ML IV ONE (08:00)
[2018-05-30] MEDS ORDERED: TRANEXAMIC ACID 1,000 MG in SODIUM CHL 0.9% 100 ML IV ONE (08:00)
[2018-05-30] MEDS ORDERED: HEPARIN 30000 UNITS in SODIUM CHLORIDE 0.9% 1000 ML IV ONE (08:00)
[2018-05-30] MEDS ORDERED: EPINEPHrine HCL 4 MG in D5W 5% 250 ML IV ONE (08:00)
[2018-05-30] MEDS ORDERED: NOREPINEPHRINE 8 MG/250ML KIT 250 ML IV ONE (08:00)
[2018-05-30] MEDS ORDERED: ALBUMIN 25% 200 ML IV ONE (08:22)
[2018-05-30] MEDS ORDERED: PLASMA-LYTE A pH7.4 8,000 ML INJ ONE (08:23)
[2018-05-30] MEDS ORDERED: ceFAZolin 1GM VL ONE (08:24)
[2018-05-30] MEDS ORDERED: MANNITOL 20 % (20GM/100ML) 500 ML IV ONE ×2 (08:24→09:49)
[2018-05-30] MEDS ORDERED: DEXMEDETOMIDINE HCL 400 MCG in D5W 5% 96 ML IV SCH (10:53)
[2018-05-30] MEDS ORDERED: PROTAMINE SULFATE 250 MG/25 ML VL IV ONE ×2 (12:14→12:28)
--- NOTE | 2018-05-30 13:20 | NUR ---
REPORT RECEIVED FROM SOY MAHAN FROM OR. PATIENT TO COME TO ROOM 111.
[2018-05-30] MEDS ORDERED: INSULIN DRIP 100 UNIT/100ML 100 ML IV SCH (14:04)
[2018-05-30] MEDS ORDERED: NITROGLYCERIN 50MG/250ML 250 ML IV SCH (14:05)
[2018-05-30] MEDS ORDERED: NOREPINEPHRINE 8 MG/250ML KIT 250 ML IV SCH (14:05)
[2018-05-30] MEDS ORDERED: DOPamine 1600MCG/ML D5W 250 ML IV SCH (14:05)
[2018-05-30] MEDS ORDERED: PROPOFOL 100 ML IV SCH (14:05)
[2018-05-30] MEDS: NICARDIPINE 25MG/250ML BAG KIT 250 ML IV SCH ×2 (14:05→19:05)
[2018-05-30] MEDS ORDERED: VANCOMYCIN 1GM/250ML 250 ML IV SCH (14:15)
[2018-05-30] MEDS ORDERED: AMIODARONE HCL 900 MG in DEXTROSE 500 ML IV SCH (14:15)
[2018-05-30] MEDS ORDERED: METOCLOPRAMIDE HCL 5MG/ml INJ 2ml VIAL IV PRN ×2 (14:15→17:15)
[2018-05-30] MEDS ORDERED: ALBUMIN 5% 250 ML IV PRN (14:15)
[2018-05-30] MEDS ORDERED: POTASSIUM CHL 20MEQ/100ML 100 ML IV PRN ×2 (14:15→17:15)
[2018-05-30] MEDS ORDERED: ONDANSETRON HCL 4 MG/2 ML VIAL IV PRN ×2 (14:15→17:15)
[2018-05-30] MEDS ORDERED: FUROSEMIDE 20 MG/2 ML VIAL IV PRN (14:15)
[2018-05-30] MEDS ORDERED: AMIODARONE HCL 150 MG in D5W 5% 100 ML IV ONE (14:15)
[2018-05-30] MEDS ORDERED: PROPRANOLOL HCL 1 MG/ML VIAL IV PRN (14:15)
[2018-05-30] MEDS ORDERED: SODIUM BICARBONATE 8.4% INJ 50ML SYRINGE IV PRN (14:15)
[2018-05-30] MEDS ORDERED: MAGNESIUM SULFATE 1GM/100ML 100 ML IV PRN (14:15)
[2018-05-30] MEDS ORDERED: DEXTROSE (50%) 50ML SYRG IV PRN ×2 (14:15→17:15)
[2018-05-30] MEDS ORDERED: MORPHINE SULFATE 4 MG/ML SYR/VIAL IV PRN (14:15)
--- NOTE | 2018-05-30 14:19 | NUR ---
Pt. arrived from [facility] accompanied by cardiothoracic team on hemodynamic monitoring. Report received from anesthesiologist and Dr. Harris. Surgery: Cabg x 3. Endoscopic Vein [place] to left leg. Lines: PA catheter around 50cm at the Hub of the Dual lumen Cordis to the right IJ [place] to left radial and right femoral artery. Pacer wires: ventricular wires rate 90, ma 20 mv 1.5 patient has own intrinsic rate at this time. Chest Tube: left, right and mediastinal draining bloody drainage, no clotting noted. [place]: to gravity draining clear yellow urine. ET tube: 8.0, 22lip line Gtts: levophed 2mcg/min, nitroglycerin 5mcg/min, normal saline 200ml/hr Hemodynamics: CO/CI:3.1/1.7 HR: 80 Assisted BP: 147/39 MAP: 90 CVP: 2 PAP: 18/7 SVR: 1130 SVO2: 67% SPO2: 100% Immediated Post- Op recovery patient was stable except for intermitent fluctuations in blood pressure. Albumin was given per protocol. Blood pressure stablilized as well as cvp and pa pressures.
[2018-05-30] MEDS: DEXMEDETOMIDINE HCL 400 MCG in D5W 5% 96 ML IV SCH (14:30)
[2018-05-30] MEDS: SODIUM CHLORIDE 0.9% 500 ML IV SCH (14:30)
[2018-05-30] MEDS: SODIUM CHLORIDE 0.9% 1,000 ML IV SCH (14:45)
[2018-05-30] MEDS: ACCU-CHEK COMFORT CURVE STRIP VI SCH ×6 (15:00→22:45)
[2018-05-30] MEDS: ALBUMIN 25% 250 ML IV PRN ×2 (15:08→15:30)
--- NOTE | 2018-05-30 15:18 | NUR ---
UPDATED DR GARCIA VIA TELEPHONE. MD MADE AWARE PATIENT IS ALERT AND FOLLOWING COMMANDS. PER MD START CPAP TRIAL.
--- NOTE | 2018-05-30 15:19 | NUR ---
STARTED CPAP TRIAL
[2018-05-30 15:30] LABS: Albumin 4.2 g/dL (3.4-5.0); Calcium 7.8 mg/dL (8.5-10.1); Potassium 3.7 mmol/L (3.5-5.1)
[2018-05-30 15:31] LABS: INR 1.17 (0.9-1.15); Prothrombin Time 12.4 sec (9.27-12.13)
[2018-05-30 15:33] LABS: Basophils # (auto) 0 uL; Basophils % (auto) 0.1 % (0.0-2.0); Eosinophils # (auto) 0 uL; Eosinophils % (auto) 0.3 % (0.0-7.0); Hematocrit 29.7 % (41.0-53.0); Hemoglobin 10.3 g/dL (13.5-17.5); Neutrophils # (auto) 10.5 uL
[2018-05-30 15:34] LABS: BUN/Creatinine Ratio 13.8; Bilirubin, Total 1.1 mg/dL (0.2-1.0); Lymphocytes # (auto) 0.7 uL; Lymphocytes % (auto) 5.4 % (10.0-50.0); Mean Corpuscular Hemoglobin 34.3 pg (28.0-32.0); Mean Corpuscular Hgb Conc. 34.8 g/dL (32.0-36.0); Mean Corpuscular Volume 98.5 fL (80.0-100.0); Monocytes % (auto) 8.3 % (0.0-12.0); Neutrophils % (auto) 85.9 % (37.0-80.0); Platelet Count (auto) 181 10^3/uL (140-450); Red Blood Cells 3.02 10^6/uL (4.5-5.90); Total Protein 5.9 g/dL (6.4-8.2); White Blood Cell 12.2 10^3/uL (4.4-10.8)
[2018-05-30] MEDS: MORPHINE SULFATE 4 MG/ML SYR/VIAL IV PRN ×3 (15:40→20:08)
[2018-05-30 15:44] LABS: Phosphorus 0.7 mg/dL (2.5-4.90)
[2018-05-30] MEDS: CALCIUM GLUC 4.65meq/50ml D5AE 50 ML IV PRN (15:54)
[2018-05-30] MEDS ORDERED: CALCIUM GLUC 4.65meq/50ml D5AE 50 ML IV ONE (16:00)
[2018-05-30] MEDS ORDERED: POTASSIUM PHOSPHATE 22 MEQ in SODIUM CHL 0.9% 100 ML IV ONE (16:00)
--- NOTE | 2018-05-30 16:28 | NUR ---
CALLED DR GARCIA WITH ABG RESULTS. PER MD WILL COME SEE PATIENT PRIOR TO EXTUBATION. Addendum: 05/30/18 at 2006 by Caprice Gomez RN ABG PH 7.365 CO2 44.1 PO2 138.7 HCO3 24.6 BE -0.8 NIF -29 VC 1.8L RESP RATE 18-20
--- NOTE | 2018-05-30 16:35 | NUR ---
EXTUBATION DR GARCIA AT BEDSIDE TO ASSESS PATIENT AND DISCUSS PLAN OF CARE WITH PATIENT AND FAMILY. PER MD EXTUBATE FAMILY. PATIENT EXTUBATED AT 1640 PLACED ON COOL MIST MASK TOLERATING WELL.
--- NOTE | 2018-05-30 16:40 | NUR ---
PATIENT EXTUBATED PER DR GARCIA'S ORDER. PATIENT PLACED ON COOL MIST MASK 35%. TOLERATING WELL. NO STRIDOR HEARD AT THIS TIME, LUNGS CLEAR. WILL CONTINUE TO MONITOR.
--- NOTE | 2018-05-30 16:40 | NUR ---
PT. EXTUBATED, PER DR. GARCIA'S V.O. , PT. PLACED ON 35% AEROSOL MASK, SPO2 98%,RR=20, QV=440/56. NO STRIDOR HEARD OVER TRACHEA, PT. DOES HAVE SLIGHT RHONCI AT THE ANTERIOR UPPER LOBES. PT. ENCOURAGED TO COUGH AND TAKE DEEP BREATHS TO CLEAR SECRETIONS. Addendum: 05/30/18 at 1654 by Teresa Gan RT Amended: Links added.
[2018-05-30] MEDS: fentaNYL CITRATE 100 MCG/2 ML VL IV PRN ×2 (16:51→17:19)
[2018-05-30] MEDS ORDERED: LIDOCAINE HCL 100 MG/5ML (2%) SYRG INJ IV ONE (17:09)
[2018-05-30] MEDS ORDERED: ADENOSINE 6 MG/2 ML INJ IV ONE (17:09)
[2018-05-30] MEDS ORDERED: CALCIUM CHLOR(10%) 100MG/ML 10ML SYRINGE IV ONE (17:09)
[2018-05-30] MEDS ORDERED: DEXAMETHASONE SODIUM PHOSP 120 MG/30ml VIAL IV ONE (17:09)
[2018-05-30] MEDS ORDERED: FUROSEMIDE 20 MG/2 ML VIAL IV ONE (17:09)
[2018-05-30] MEDS ORDERED: hydrALAZINE HCL 20 MG/ML VL IV PRN ×2 (17:15)
[2018-05-30] MEDS ORDERED: fentaNYL CITRATE 100 MCG/2 ML VL IV PRN (17:15)
--- NOTE | 2018-05-30 17:19 | NUR ---
SECOND DOSE OF FENTANYL 25MCG IVP PER DR GARCIA TO EQUAL 50MCG FOR PATIENT PAIN 10/10. PATIENT RESTLESS AND MOANING IN BED. WILL CONTINUE TO MONITOR.
[2018-05-30] MEDS: ACETAMINOPHEN IV 1000 MG/100ML (10MG/ML) IV PRN (17:21)
--- NOTE | 2018-05-30 17:21 | NUR ---
ADMINISTERED IV TYLENOL ORDERED FOR PATIENT COMPLAINT OF PAIN 03/19. WILL CONTINUE TO MONITOR.
[2018-05-30] MEDS: KETOROLAC TROMETH 30 MG/ML 1ML VIAL IV PRN (17:52)
[2018-05-30] MEDS: Glucerna Carbsteady SHAKE Vanilla 8oz PO SCH (18:00)
[2018-05-30] MEDS: InsuLIN REG 1unit/0.01ml Soln (100units/ml) SC SCH ×2 (18:00→22:50)
[2018-05-30] MEDS: FUROSEMIDE 40 MG TAB PO SCH (18:00)
--- NOTE | 2018-05-30 18:50 | NUR ---
RT NOTE PLACED PT ON BIPAP ON STATED SETTINGS FOR 45 MINUTES PER ORDER. BIPAP IS PLUGGED TO RED OUTLET. ALARMS ARE ON AND AUDIBLE AT NURSES STATION. HHN GIVEN INLINE WITH 0.5 MG ATROVENT WITHOUT ADVERSE REACTION. BILATERAL BS ARE DIM WITH CRACKLES. PT TOLERATES WELL. PLACED PT ON 3L NASAL CANNULA POST TX. POX 97%, TEMP 97.8 HEMODYNAMICS: CO/CO 5.2/1.7, MAP 82, CVP 5, PAS/PAD 22/7, SVO2 55, SVR 1185 OUTPUTS: CT 40, URINE 178 Addendum: 05/30/18 at 2006 by Shaye Mccartney RT Amended: Links added.
[2018-05-30] MEDS: IPRATROPIUM BROM 0.5 MG/2.5ML INH SOL NEB SCH ×2 (19:09→22:49)
--- NOTE | 2018-05-30 19:30 | NUR ---
OPEN ASSUMED CARE OF MALE PT S/P CABG TODAY S/P EXTUBATION. PT AWAKE AND ALERT ABLE TO FOLLOW COMMANDS. PT RECEIVING BIPAP TX AT THIS TIME AND TOLERATING WELL. PT SR ON HUMAN RESOURCES TEAM MEMBER. STERNAL INCISION WITH AQUACEL DRESSING WITH SMALL AMOUNT OF DRIED BLOOD OBSERVED. NO FRESH BLEEDING. DRESSING INTACT, DRAINAGE CIRCLED. CHEST TUBES L AND R PLEURAL AND MEDIASTINAL TO ATRIUM COLLECTION UNITS X 2 SECURED TO FLOOR. NO AIR LEAK OR CREPITUS. CHEST TUBE DRESSINGS CDI. R. IJ SWAN JODI CATH IN PLACE GOOD WAVE FORMS OBSERVED. PT WITH L. RADIAL A LINE, R. FEM ARTERIAL SHEATH. DRESSINGS CLEAN AND DRY. NEITHER JUANA CORRELATES WITH PERIPHERAL BLOOD PRESSURES. V EPICARDIAL PACER WIRES IN PLACE CONNECTED TO EXTERNAL GENERATOR TURNED OFF. PT HR 80'S. SANZ TO GRAVITY DRAINING CLEAR YELLOW URINE. GRACY WRAP PRESENT TO L. LEG SITE OF ENDOSCOPIC VEIN GRAFT HARVEST SITES. INCISIONS TO L. LOWER CALF/ANKLE AREA, L. MEDIAL KNEE, AND L. GROIN. ALL WELL APPROXIMATED WITH NO BLEEDING. L. LOWER EXT WITH SOME SWELLING AND MINIMAL BRUISING. EXTREMITY RE WRAPPED PER PROTOCOL. CALL NARANJO IN REACH. BED IN LOWEST POSITION. PT IN REVERSE [place] TO AVOID BENDING OF R. EXTREMITY DUE TO ARTERIAL SHEATH PLACEMENT. PT IN FULL VIEW OF RN STATION. WILL CONTINUE TO MONITOR.
[2018-05-30] MEDS: HYDROcodone-ACET 7.5/325MG TAB PO PRN (19:50)
--- NOTE | 2018-05-30 20:00 | NUR ---
PAIN PT C/O PAIN 6/10 MEDICATED WITH NORCO PO PER ORDER.
[2018-05-30] MEDS: VANCOMYCIN 1GM/250ML 250 ML IV SCH (20:03)
[2018-05-30] MEDS: AMIODARONE HCL 900 MG in DEXTROSE 500 ML IV SCH (20:15)
--- NOTE | 2018-05-30 20:25 | NUR ---
JUANA REMOVAL L. RADIAL JUANA REMOVED PER ORDER 15 MIN MANUAL PRESSURE HELD. NO BRUISING OR HEMATOMA OBSERVED. PRESSURE DRESSING APPLIED. EDUCATED PT TO REPORT ANY NUMBNESS OR TINGLING TO EXTREMITY.
--- NOTE | 2018-05-30 21:00 | NUR ---
ARTERIAL SHEATH REMOVAL R. FEMORAL ARTERIAL SHEATH REMOVED PER ORDER. MANUAL PRESSURE HELD FOR 25 MIN. SAFEGAURD APPLIED TO GROIN WITH 50 ML AIR INSERTED. PT ONCE AGAIN EDUCATED TO REPORT ANY NUMBNESS OR TINGLING TO EXTREMITY. EDUCATED TO KEEP EXTREMITY STILL FOR 4 HOURS. PT TOLERATED WELL. REPORTS NO DISCOMFORT. NO BLEEDING OR HEMATOMA OBSERVED. WILL CONTINUE TO CLOSELY MONITOR.
[2018-05-30] MEDS ORDERED: ACETYLCYSTEINE 10 %(100MG/ML) SOL 4ML NEB SCH (22:00)
[2018-05-30] MEDS: CHLORHEXIDINE 0.12% ORAL rinse 473ML MT SCH (22:00)
[2018-05-30] MEDS: METOPROLOL TARTRATE 25 MG TAB PO SCH (22:00)
[2018-05-30] MEDS: DOCUSATE SOD 100 MG CAP PO SCH (22:01)
[2018-05-30] MEDS: ASCORBIC ACID 500 MG TAB PO SCH (22:01)
[2018-05-30] MEDS: ATORVASTATIN 20 MG TAB PO SCH (22:01)
--- NOTE | 2018-05-30 22:09 | NUR ---
RT NOTE PLACED PT ON BIPAP ON STATED SETTINGS FOR 45 MINUTES PER ORDER. BIPAP IS PLUGGED TO RED OUTLET. ALARMS ARE ON AND AUDIBLE AT NURSES STATION. HHN GIVEN INLINE WITH 0.5 MG ATROVENT AND 1CC 10% MUCOMYST WITHOUT ADVERSE REACTION. BILATERAL BS ARE DIM WITH CRACKLES. PT TOLERATES WELL. PLACED PT ON 3L NASAL CANNULA POST TX. POX 99% Addendum: 05/30/18 at 1158 by Shaye Mccartney RT Amended: Links added.
--- NOTE | 2018-05-30 22:10 | NUR ---
NAUSEA PT STATES FEELING NAUSEOUS. MEDICATED WITH ZOFRAN SIVP PER ORDER. WILL CONTINUE TO MONITOR.
[2018-05-30] MEDS: POTASSIUM CHL 20 Meq TABLET PO SCH (22:18)
--- NOTE | 2018-05-30 22:20 | NUR ---
SWAN JODI CATH REMOVED PER ORDER. CORDIS LEFT IN PLACE TO PROVIDE CVP READINGS. PT TOLERATED WELL WITH NO ECTOPY.
[2018-05-30] MEDS: ACETYLCYSTEINE 10 %(100MG/ML) SOL 4ML NEB SCH (22:48)
[2018-05-31] VITALS (36 sets, daily range): BP systolic 0–141; BP diastolic 0–67
[2018-05-31] MEDS: NICARDIPINE 25MG/250ML BAG KIT 250 ML IV SCH ×5 (00:05→20:05)
--- NOTE | 2018-05-31 01:00 | NUR ---
PAIN PT HAVING PAIN 5/10 TO STERNAL INCISION. MEDICATED WITH TYLENOL IV PER ORDER (SEE EMAR).
[2018-05-31] MEDS: ACETAMINOPHEN IV 1000 MG/100ML (10MG/ML) IV PRN (01:02)
[2018-05-31] MEDS: ACCU-CHEK COMFORT CURVE STRIP VI SCH ×6 (02:00→21:43)
[2018-05-31] MEDS: InsuLIN REG 1unit/0.01ml Soln (100units/ml) SC SCH ×6 (02:00→21:43)
[2018-05-31] MEDS: SODIUM CHLORIDE 0.9% 1,000 ML IV SCH (02:35)
[2018-05-31 03:25] LABS: Basophils # (auto) 0 uL; Eosinophils # (auto) 0 uL; Hematocrit 22.7 % (41.0-53.0); Lymphocytes # (auto) 0.3 uL; Monocytes # (auto) 0.9 uL; Monocytes % (auto) 9.1 % (0.0-12.0); Neutrophils # (auto) 8.6 uL
[2018-05-31 03:27] LABS: Lymphocytes % (auto) 3.3 % (10.0-50.0); Mean Corpuscular Hemoglobin 34.7 pg (28.0-32.0); Mean Corpuscular Volume 99.1 fL (80.0-100.0); Neutrophils % (auto) 87.6 % (37.0-80.0); Platelet Count (auto) 136 10^3/uL (140-450); Red Blood Cells 2.29 10^6/uL (4.5-5.90); Red Cell Distribution Width 12.1 % (11.8-14.3); White Blood Cell 9.9 10^3/uL (4.4-10.8)
[2018-05-31 03:46] LABS: BUN/Creatinine Ratio 14.6; Calcium 7.2 mg/dL (8.5-10.1); Potassium 4.1 mmol/L (3.5-5.1)
[2018-05-31] MEDS: DEXMEDETOMIDINE HCL 400 MCG in D5W 5% 96 ML IV SCH (03:46)
[2018-05-31] MEDS: HYDROcodone-ACET 7.5/325MG TAB PO PRN ×2 (04:14→16:00)
--- NOTE | 2018-05-31 05:00 | NUR ---
DRESSING CHANGE CHEST TUBE INSERTION SITES CLEANSED WITH CHLORHEXIDINE SWABS. REDRESSED WITH STERILE 4X4'S COVERED WITH PRESSURE TAPE. PT TOLERATED WELL.
--- NOTE | 2018-05-31 05:30 | NUR ---
AMBULATION/BP PT ASSISTED OOB TO WALK WITH WALKER, PORTABLE MONITOR, AND PORTABLE O2. AFTER HALF LAP AROUND RN STATION PT BECAME DIZZY. BP CHECK WHILE STANDING WAS 90/40. PT ASSISTED TO SIT IN CHAIR UNTIL FEELING RECOVERED. PT ABLE TO AMBULATE BACK TO ROOM TO RECLINER AT BEDSIDE. BP CHECK WHILE SITTING SBP 120'S. PT STATES FEELING MUCH BETTER.
[2018-05-31 05:34] LABS: Phosphorus 3.7 mg/dL (2.5-4.90)
[2018-05-31] MEDS: CALCIUM GLUC 4.65meq/50ml D5AE 50 ML IV PRN (06:00)
[2018-05-31] MEDS: FUROSEMIDE 40 MG TAB PO SCH ×2 (06:00→20:20)
[2018-05-31] MEDS: ACETYLCYSTEINE 10 %(100MG/ML) SOL 4ML NEB SCH ×3 (06:09→19:22)
[2018-05-31] MEDS: IPRATROPIUM BROM 0.5 MG/2.5ML INH SOL NEB SCH ×4 (06:09→19:22)
--- NOTE | 2018-05-31 06:30 | NUR ---
PAIN PT HAVING PAIN 5/10 TO STERNAL INCISION. PT MEDICATED WITH TORADOL IV PER ORDER. SEE EMAR.
[2018-05-31] MEDS: KETOROLAC TROMETH 30 MG/ML 1ML VIAL IV PRN (06:35)
[2018-05-31] MEDS: cefTRIAXone 1GM/50ML D5W 50 ML IV SCH (06:54)
[2018-05-31] MEDS ORDERED: IPRATROPIUM BROM 0.5 MG/2.5ML INH SOL NEB PRN (07:00)
--- NOTE | 2018-05-31 08:00 | NUR ---
INITIAL/ONGOING ASSESSMENT: Patient sitting up in chair, denies pain at this time. IS reviewed with patient, best effort 750; instructions given to patient to complete 10 repetitions every hour while awake. Plan of care discussed with patient including need to stay in the chair during waking hours and ambulation 2-3 times per shift. Patient verbalized understanding. No distress noted at this time. All assessments completed and documented in the appropriate flow-sheets.
[2018-05-31] MEDS ORDERED: SODIUM CHLORIDE 0.9% 1,000 ML IV SCH (08:15)
[2018-05-31] MEDS ORDERED: CALCIUM GLUC 4.65meq/50ml D5AE 50 ML IV PRN (08:15)
[2018-05-31] MEDS: Glucerna Carbsteady SHAKE Vanilla 8oz PO SCH ×3 (08:30→18:00)
[2018-05-31] MEDS: VANCOMYCIN 1GM/250ML 250 ML IV SCH ×2 (08:36→20:20)
--- NOTE | 2018-05-31 09:30 | NUR ---
NURSING REPORTS THAT THEY CAN ASSIST PATIENT NEEDED.
[2018-05-31] MEDS ORDERED: ASPirin 81 mg TAB PO SCH (10:00)
[2018-05-31] MEDS ORDERED: PANTOPRAZOLE 40 MG/10 ML VIAL IV SCH (10:00)
[2018-05-31] MEDS: CHLORHEXIDINE 0.12% ORAL rinse 473ML MT SCH ×2 (12:12→21:43)
[2018-05-31] MEDS: PANTOPRAZOLE 40 MG/10 ML VIAL IV SCH (12:12)
[2018-05-31] MEDS: METOPROLOL TARTRATE 25 MG TAB PO SCH ×2 (12:13→21:42)
[2018-05-31] MEDS: POTASSIUM CHL 20 Meq TABLET PO SCH ×2 (12:13→21:43)
[2018-05-31] MEDS: DOCUSATE SOD 100 MG CAP PO SCH ×2 (12:13→21:42)
[2018-05-31] MEDS: ASCORBIC ACID 500 MG TAB PO SCH ×2 (12:13→21:42)
[2018-05-31] MEDS: NITROGLYCERIN 0.4MG/HR TOPICAL PATCH TD SCH (12:14)
[2018-05-31] MEDS: SODIUM CHLORIDE 0.9% 500 ML IV SCH (14:05)
[2018-05-31 15:22] LABS: Basophils # (auto) 0 uL; Basophils % (auto) 0.1 % (0.0-2.0); Eosinophils # (auto) 0 uL; Eosinophils % (auto) 0.2 % (0.0-7.0); Hematocrit 26.7 % (41.0-53.0); Hemoglobin 9.3 g/dL (13.5-17.5); Lymphocytes # (auto) 0.7 uL; Lymphocytes % (auto) 7.2 % (10.0-50.0); Mean Corpuscular Hemoglobin 33.6 pg (28.0-32.0); Mean Corpuscular Hgb Conc. 34.8 g/dL (32.0-36.0); Mean Corpuscular Volume 96.6 fL (80.0-100.0); Monocytes # (auto) 0.8 uL; Neutrophils # (auto) 8.5 uL; Neutrophils % (auto) 84.5 % (37.0-80.0); Platelet Count (auto) 136 10^3/uL (140-450); Red Blood Cells 2.77 10^6/uL (4.5-5.90); Red Cell Distribution Width 14.8 % (11.8-14.3)
[2018-05-31] MEDS: MORPHINE SULFATE 4 MG/ML SYR/VIAL IV PRN (15:23)
[2018-05-31] MEDS: SULFASALAZINE 500 MG TAB PO SCH ×2 (15:30→21:42)
[2018-05-31] MEDS: GEMFIBROZIL 600 MG TAB PO SCH ×2 (15:30→21:42)
--- NOTE | 2018-05-31 15:30 | NUR ---
ACTIVITY; Patient ambulated x 1 lap around the nurses station. Tolerated activity well, no ectopy, no decrease in oxygen saturations. Patient returned to chair at the bedside.
[2018-05-31 15:37] LABS: Calcium 7.6 mg/dL (8.5-10.1); Magnesium 2.8 mg/dL (1.6-2.6); Phosphorus 4.2 mg/dL (2.5-4.90); Potassium 4.2 mmol/L (3.5-5.1)
[2018-05-31] MEDS: ALPRAZolam 0.5 MG TAB PO PRN (16:00)
--- NOTE | 2018-05-31 16:24 | NUR ---
ELECTROLYTE REPLACEMENT: Corrected Ca+ 7.44, will administer replacement as per protocol
[2018-05-31] MEDS ORDERED: THROAT LOZENGES(CEPASTAT) MT PRN (19:15)
--- NOTE | 2018-05-31 19:20 | NUR ---
OPEN ASSUMED CARE, FULL ASSESSMENT DONE; SEE INTERVENTIONS. PT SITTING UP IN CHAIR RECEIVING BIPAP TREATMENT IN NO DISTRESS. CHEST TUBES X [address], DRAINING TO ATRIUM WITH NO AIR LEAK NOTED. SANZ DRAINING CLEAR YELLOW URINE TO GRAVITY. RIGHT IJ CORDIS INTACT AND PATENT, CVP NOTED AT 3. CONTINUE CARE.
--- NOTE | 2018-05-31 20:10 | NUR ---
Respiratory note: REMOVED PT FROM BIPAP AT THIS TIME
[2018-05-31] MEDS: AMIODARONE HCL 900 MG in DEXTROSE 500 ML IV SCH (20:15)
--- NOTE | 2018-05-31 20:15 | NUR ---
INTAKE PT. ATE APPROX 25% OF DINNER AND GLUCERNA SHAKE.
--- NOTE | 2018-05-31 20:30 | NUR ---
AMBULATION/PAIN PT. AMBULATED X 2 LAPS AROUND RN STATION USING 4WW, PORTABLE MONITOR, ON 3 L NC. PT TOLERATED WELL. ASSISTED BACK TO CHAIR AND MEDICATED FOR "6/10 CHEST INCISION PAIN"; SEE EMAR. HIGHEST HR DURING AMBULATION SR 76, POX MAINTAINED >94%.
[2018-05-31] MEDS: fentaNYL CITRATE 100 MCG/2 ML VL IV PRN (21:04)
[2018-05-31 21:31] LABS: Albumin 3.8 g/dL (3.4-5.0); BUN/Creatinine Ratio 15.6; Calcium 8.1 mg/dL (8.5-10.1); Potassium 3.9 mmol/L (3.5-5.1)
[2018-05-31 21:34] LABS: Bilirubin, Total 0.6 mg/dL (0.2-1.0); Total Protein 6.1 g/dL (6.4-8.2)
[2018-05-31] MEDS: diphenhdrAMINE HCL 25 MG CAP PO PRN (21:42)
[2018-05-31] MEDS: ATORVASTATIN 20 MG TAB PO SCH (21:42)
--- NOTE | 2018-05-31 21:57 | NUR ---
ROUNDS/OUTPUTS PT. RESTING IN CHAIR WITH NO COMPLAINTS OF PAIN, VITAL SIGNS STABLE. MEDICATED WITH PRN BENADRYL PER ORDERS BY REQUEST OF PT; SEE EMAR. URINE OUTPUT FOR SHIFT: 575 MLs L/R PLE[address] OUTPUT FOR SHIFT: [address] OUTPUT FOR SHIFT: 20 MLs
--- NOTE | 2018-05-31 22:20 | NUR ---
CORRECTED CA: 8.3, WILL RECHECK AM LABS.
--- NOTE | 2018-05-31 22:26 | NUR ---
BIPAP PT. PREVIOUSLY STATED HE WANTED TO SKIP 2200 BIPAP TREATMENT SINCE HE HAS NOT SLEPT MUCH. RT AWARE. PT IN NO RESP DISTRESS, VITAL SIGNS STABLE. POX 97% ON 3 L NC WITH CLEAR LUNG SOUNDS THROUGHOUT.
[2018-06-01] VITALS (42 sets, daily range): BP systolic 86–146; BP diastolic 43–79
--- NOTE | 2018-06-01 00:11 | NUR ---
ROUNDS PT. CONTINUES TO REST IN CHAIR, VITAL SIGNS STABLE. OUTPUTS STABLE. CONTINUE CARE.
[2018-06-01] MEDS: fentaNYL CITRATE 100 MCG/2 ML VL IV PRN ×3 (00:43→21:42)
[2018-06-01] MEDS: NICARDIPINE 25MG/250ML BAG KIT 250 ML IV SCH ×5 (01:05→21:05)
[2018-06-01] MEDS: InsuLIN REG 1unit/0.01ml Soln (100units/ml) SC SCH ×6 (02:00→21:54)
[2018-06-01] MEDS: ACCU-CHEK COMFORT CURVE STRIP VI SCH ×6 (02:11→21:27)
[2018-06-01 02:13] LABS: Basophils # (auto) 0 uL; Basophils % (auto) 0.3 % (0.0-2.0); Eosinophils # (auto) 0 uL; Eosinophils % (auto) 0.4 % (0.0-7.0); Hematocrit 25.1 % (41.0-53.0); Hemoglobin 8.6 g/dL (13.5-17.5); Lymphocytes # (auto) 0.8 uL; Lymphocytes % (auto) 8.3 % (10.0-50.0); Mean Corpuscular Hgb Conc. 34.4 g/dL (32.0-36.0); Mean Corpuscular Volume 96.1 fL (80.0-100.0); Monocytes # (auto) 0.7 uL; Monocytes % (auto) 7.5 % (0.0-12.0); Neutrophils # (auto) 7.9 uL; Neutrophils % (auto) 83.5 % (37.0-80.0); Nucleated Red Blood Cells % 0.1 %; Platelet Count (auto) 117 10^3/uL (140-450); Red Blood Cells 2.61 10^6/uL (4.5-5.90); Red Cell Distribution Width 14.7 % (11.8-14.3); White Blood Cell 9.5 10^3/uL (4.4-10.8)
--- NOTE | 2018-06-01 02:14 | NUR ---
OUTPUTS/ROUNDS URINE OUTPUT FOR SHIFT: 1100 MLs RIGHT/LEFT PLEURAL CT OUTPUT FOR SHIFT: [address] OUTPUT FOR SHIFT: 40 MLs PT HAS REMAINED HEMODYNAMICALLY STABLE THROUGHOUT SHIFT. HE CONTINUES TO SIT UP IN CHAIR AT BEDSIDE, EYES CLOSED WITH RESPIRATIONS EVEN AND UNLABORED.
[2018-06-01 02:28] LABS: Albumin 3.5 g/dL (3.4-5.0); BUN/Creatinine Ratio 16.5; Calcium 7.6 mg/dL (8.5-10.1); Magnesium 2.3 mg/dL (1.6-2.6); Potassium 4.3 mmol/L (3.5-5.1)
[2018-06-01] MEDS: HYDROcodone-ACET 7.5/325MG TAB PO PRN ×2 (02:29→08:15)
[2018-06-01 02:31] LABS: Bilirubin, Total 0.5 mg/dL (0.2-1.0); Total Protein 5.8 g/dL (6.4-8.2)
--- NOTE | 2018-06-01 02:31 | NUR ---
ELECTROLYTE REPLACEMENT CORRECTED CA: 8.0, WILL REPLACE PER PROTOCOL.
[2018-06-01] MEDS: FUROSEMIDE 40 MG TAB PO SCH ×2 (05:30→18:19)
[2018-06-01] MEDS: SULFASALAZINE 500 MG TAB PO SCH ×3 (05:30→21:26)
--- NOTE | 2018-06-01 06:28 | NUR ---
MD/CARES/OUTPUTS SPOKE WITH DR. WORLEY, NEW ORDERS RECEIVED TO D/C SANZ CATHETER AND PUT FLUIDS TO TKO. CT SITES CLEANSED WITH CHLORHEX SWABS, COVERED IN 4X4 GAUZE AND MICROFOAM TAPE. ENDOSCOPIC SITES CLEANSED WITH CHLORHEX SWABS, ED HOSE REPLACED. ASSISTED PT WITH WASHING HAIR AND SPONGE BATH. URINE OUTPUT FOR SHIFT: 1670 MLs LEFT/RIGHT PLEURAL CT OUTPUT FOR SHIFT: [address] OUTPUT FOR SHIFT: 60 MLs
[2018-06-01] MEDS: cefTRIAXone 1GM/50ML D5W 50 ML IV SCH (06:40)
[2018-06-01] MEDS: ACETYLCYSTEINE 10 %(100MG/ML) SOL 4ML NEB SCH ×3 (06:47→20:22)
[2018-06-01] MEDS: IPRATROPIUM BROM 0.5 MG/2.5ML INH SOL NEB SCH ×4 (06:47→20:21)
[2018-06-01] MEDS ORDERED: SULF500T37 PO (07:30)
--- NOTE | 2018-06-01 08:00 | NUR ---
INITIAL/ONGOING ASSESSMENT: Patient up in chair, Atkinson discontinued balloon intact. Patient tolerated atkinson removal well. Instructed patient regarding use of urinal and need to inform this nurse when he has voided. Patient ambulated x 2.5 laps around nursing station, patient tolerated well, returned to chair at bedside. Patient medicated for pain. Breakfast tray provided. All assessments completed and documented in the chart.
[2018-06-01] MEDS: VANCOMYCIN 1GM/250ML 250 ML IV SCH (08:15)
[2018-06-01] MEDS: Glucerna Carbsteady SHAKE Vanilla 8oz PO SCH ×3 (09:00→18:00)
[2018-06-01] MEDS ORDERED: POTASSIUM CHL 20 Meq TABLET PO PRN (10:45)
[2018-06-01] MEDS: PANTOPRAZOLE 40 MG/10 ML VIAL IV SCH (11:15)
[2018-06-01] MEDS: CHLORHEXIDINE 0.12% ORAL rinse 473ML MT SCH ×2 (11:15→21:27)
[2018-06-01] MEDS: POTASSIUM CHL 20 Meq TABLET PO SCH ×2 (11:15→21:26)
[2018-06-01] MEDS: ASCORBIC ACID 500 MG TAB PO SCH ×2 (11:15→21:26)
[2018-06-01] MEDS: DOCUSATE SOD 100 MG CAP PO SCH ×2 (11:15→21:26)
[2018-06-01] MEDS: GEMFIBROZIL 600 MG TAB PO SCH ×2 (11:15→21:27)
--- NOTE | 2018-06-01 11:41 | NUR ---
Nutrition Assessment Notes please see attached link for complete assessment Est. Needs BW 72k-2160kcal (25-30kcal/kgBW), 72-86 gms pro (1.0-1.2 gms/kgBW). Will continue to monitor pertinent labs and reassess nutrient need prn Addendum: 06/01/18 at [address] Amended: Links added.
[2018-06-01] MEDS ORDERED: PARoxetine 20 MG TAB PO ONE (11:45)
[2018-06-01] MEDS ORDERED: SODIUM FERR GLUC 62.5MG/5ML 125 MG in SODIUM CHL 0.9% 100 ML IV ONE (12:00)
[2018-06-01] MEDS: SODIUM CHLORIDE 0.9% 500 ML IV SCH (14:05)
[2018-06-01] MEDS: METOPROLOL TARTRATE 25 MG TAB PO SCH ×2 (14:31→21:19)
[2018-06-01] MEDS: NITROGLYCERIN 0.4MG/HR TOPICAL PATCH TD SCH (14:31)
[2018-06-01] MEDS: POTASSIUM CHL 20MEQ/100ML 100 ML IV PRN ×2 (18:00→19:54)
--- NOTE | 2018-06-01 19:08 | NUR ---
RESP NOTE: PT IS CURRENTLY EATING DINNER. WILL RETURN AT LATER TIME FOR EZPAP TX.
[2018-06-01] MEDS: MORPHINE SULFATE 4 MG/ML SYR/VIAL IV PRN (19:22)
--- NOTE | 2018-06-01 19:22 | NUR ---
Pain management Patient C/O pain and requested medication. No drowsiness or respiratory depression noted. Morphine administered per MD order via very slow IVP. Patient tolerated well with no adverse reactions noted.
--- NOTE | 2018-06-01 19:30 | NUR ---
Initial Assessment patient received laying on bed watching television. patient is awake, alert, and oriented. He does C/O pain-will medicate per MD order. patient has RIJ dual lumen cordis with dressing CDI, mid-sternal chest incision dressing is CDI (per shift report, Dr. Harris wants Aquacel AG dressing to stay on for one more day), PIV x2 intact and patent with no s/s of infiltration or phlebitis-saline locked. Ventricular epicardial wire present not connected to generator. chest tube x3 dressings are CDI connected to atrium collection chamber at -20cm h20 suction draining serosanguineous fluid. No clots, crepitus, or air leaks noted, ED hose intact to BLE. Neurovascular status is intact with palpable distal pulses, capillary refill brisk, skin warm to touch. Patient educated about how to use the call light and encouraged to call when needing any assistance and patient verbalized understanding and demonstrated proper use. Also educated on fall precautions and not to attempt to get OOB without RN present and patient verbalized understanding. Call light, urinal, and side table are within reach. Bed in lowest position, side rails up, bed brakes set, fall socks/fall band intact. All VSS. Continue close care.
--- NOTE | 2018-06-01 20:00 | NUR ---
Pacemaker check Ventricular epicardial wires connected to external pacemaker generator with settings of sensitivity 0.5, Ma 20, and backup rate 60. Check performed the 100% capture and proper timing. Rate turned back down to 60 and not currently pacing as intrinsic rate is NSR 80's. Wires to stay connected to pacemaker generator for safety.
[2018-06-01] MEDS: AMIODARONE HCL 900 MG in DEXTROSE 500 ML IV SCH (20:15)
--- NOTE | 2018-06-01 20:24 | NUR ---
RESP NOTE: MED NEB TX GIVEN WITH EZ PAP. PT TOLERATED TX WELL. POX 98%
--- NOTE | 2018-06-01 20:30 | NUR ---
Elimination Patient was using the urinal and urine leaked. Patient cleansed and all linens and gown changed. Patient tolerated turning and repositioning well and was able to assist with turning.
[2018-06-01] MEDS: diphenhdrAMINE HCL 25 MG CAP PO PRN (21:26)
[2018-06-01] MEDS: ATORVASTATIN 20 MG TAB PO SCH (21:27)
--- NOTE | 2018-06-01 22:00 | NUR ---
Ambulation held RN went into room to get patient up to ambulate. However, patient is requesting to not ambulate tonight because he is feeling tired and in pain. Patient educated about importance of frequent ambulation and he verbalized understanding but continues to request to rest tonight. Patient agreed to ambulate in the morning. Patient did ambulate twice today and is coughing/deep breathing frequently.
--- NOTE | 2018-06-01 22:30 | NUR ---
Incentive Spirometer Patient educated about how to use the incentive spirometer and encouraged to use it frequently. Patient demonstrated proper use and was able to get to 750ml of inspired air on best effort. RN will continue to encourage frequent use.
[2018-06-02] VITALS (42 sets, daily range): BP systolic 91–141; BP diastolic 43–88
--- NOTE | 2018-06-02 00:30 | NUR ---
Ongoing Assessment patient resting in bed with eyes closed-awakens easily to verbal stimuli. RR even and unlabored with equal rise and fall with no s/s of distress or pain noted. HOB elevated. PIV intact and patent, chest tubes remain benign and draining, patient using urinal independently, no bleeding from incision sites noted, HR NSR with no ectopy observed, neurovascular status intact with palpable distal pulses and brisk capillary refill. All VSS. Continue close care.
[2018-06-02] MEDS: InsuLIN REG 1unit/0.01ml Soln (100units/ml) SC SCH ×6 (01:30→22:00)
[2018-06-02] MEDS: NICARDIPINE 25MG/250ML BAG KIT 250 ML IV SCH ×5 (01:30→22:05)
[2018-06-02] MEDS: ACCU-CHEK COMFORT CURVE STRIP VI SCH ×6 (01:30→22:06)
[2018-06-02] MEDS: fentaNYL CITRATE 100 MCG/2 ML VL IV PRN ×3 (01:50→11:46)
[2018-06-02 03:59] LABS: Basophils # (auto) 0 uL; Basophils % (auto) 0.2 % (0.0-2.0); Eosinophils # (auto) 0.1 uL; Eosinophils % (auto) 1.9 % (0.0-7.0); Hematocrit 24.3 % (41.0-53.0); Hemoglobin 8.4 g/dL (13.5-17.5); Lymphocytes # (auto) 0.8 uL; Lymphocytes % (auto) 10.2 % (10.0-50.0); Mean Corpuscular Hemoglobin 33.2 pg (28.0-32.0); Mean Corpuscular Hgb Conc. 34.4 g/dL (32.0-36.0); Mean Corpuscular Volume 96.4 fL (80.0-100.0); Monocytes # (auto) 0.8 uL; Neutrophils # (auto) 6.1 uL; Neutrophils % (auto) 77.7 % (37.0-80.0); Nucleated Red Blood Cells % 0.1 %; Platelet Count (auto) 120 10^3/uL (140-450); Red Blood Cells 2.52 10^6/uL (4.5-5.90); White Blood Cell 7.8 10^3/uL (4.4-10.8)
--- NOTE | 2018-06-02 04:00 | NUR ---
Patient bathe/linen change/incisional care Patient given bed bath with CHG wipes, all linens and gown changes. Chest tube insertion sites cleansed with CHG Swabsticks and redressed with petroleum soaked gauze, sterile gauze, and Medipore tape. Endoscopic harvest sites cleansed with CHG Swabsticks and ED hose re-applied.
[2018-06-02 04:17] LABS: Calcium 7.9 mg/dL (8.5-10.1); Potassium 3.9 mmol/L (3.5-5.1)
[2018-06-02 04:23] LABS: Albumin 3.1 g/dL (3.4-5.0); Bilirubin, Total 0.5 mg/dL (0.2-1.0); Magnesium 2.2 mg/dL (1.6-2.6); Total Protein 5.9 g/dL (6.4-8.2)
[2018-06-02] MEDS: MORPHINE SULFATE 4 MG/ML SYR/VIAL IV PRN ×2 (04:23→16:19)
[2018-06-02] MEDS: POTASSIUM CHL 20MEQ/100ML 100 ML IV PRN ×2 (04:32→06:23)
--- NOTE | 2018-06-02 06:00 | NUR ---
Ambulation patient ambulated two laps around the nurses station connected to continuous cardiac/sp02 monitoring and utilizing FWW on 3L o2 via N/C. Patient tolerated well with no SOB or CP noted. Patient assisted into chair at bedside. Will medicate for pain.
[2018-06-02] MEDS: SULFASALAZINE 500 MG TAB PO SCH ×4 (06:13→21:55)
[2018-06-02] MEDS: FUROSEMIDE 40 MG TAB PO SCH ×2 (06:14→18:15)
[2018-06-02] MEDS: IPRATROPIUM BROM 0.5 MG/2.5ML INH SOL NEB SCH ×6 (07:00→22:25)
--- NOTE | 2018-06-02 07:00 | NUR ---
Cordis D/C Order to discontinue cordis endorsed to day shift RN due to potassium still infusing.
[2018-06-02] MEDS: ACETYLCYSTEINE 10 %(100MG/ML) SOL 4ML NEB SCH ×4 (07:01→22:25)
--- NOTE | 2018-06-02 07:01 | NUR ---
Respiratory note: PT RECEIVED [place] TX VIA EZ PAP.
--- NOTE | 2018-06-02 07:13 | NUR ---
REPORT GIVEN TO NIKUNJ RN Addendum: 06/02/18 at 1932 by Neo Miller RN TIME [id number]
--- NOTE | 2018-06-02 07:28 | NUR ---
Report given Patient remains in stable condition with no s/s of distress or pain. Care endorsed.
--- NOTE | 2018-06-02 07:40 | NUR ---
OPENING SHIFT NOTE Report received from Alysia MAHAN. Patient received sitting in chair asleep. Right IJ cordis with dressing CDI, mid-sternal chest incision dressing is CDI, PIV x2 intact and patent with no s/s of infiltration or phlebitis-saline locked. Ventricular epicardial wire present not connected to generator. Chest tube x3 dressings are CDI connected to atrium collection chamber at -20cm h20 suction draining serosanguineous fluid. No clots, crepitus, or air leaks noted, ED hose intact to BLE. Neurovascular status is intact with palpable distal pulses, capillary refill brisk, skin warm to touch. Lungs clear anteriorly, patient denies cough or shortness of breath. Patient on 3 l nasal cannula. Bowel sounds noted. Patient positive for passing gas but no bowel movement. Patient educated about how to use the call light and encouraged to call when needing any assistance and patient verbalized understanding and demonstrated proper use. Also educated on fall precautions and not to attempt to get OOB without RN present and patient verbalized understanding. Call light, urinal, and side table are within reach. Bed in lowest position, side rails up, bed brakes set, fall socks/fall band intact. All VSS. Continue close care.
[2018-06-02] MEDS: Glucerna Carbsteady SHAKE Vanilla 8oz PO SCH ×3 (08:00→18:00)
[2018-06-02] MEDS: HYDROcodone-ACET 7.5/325MG TAB PO PRN ×2 (08:51→14:29)
--- NOTE | 2018-06-02 08:51 | NUR ---
Pain management Patient C/O pain and requested medication. No drowsiness or respiratory depression noted. [place] administered per MD order. Patient tolerated well with no adverse reactions note
--- NOTE | 2018-06-02 09:13 | NUR ---
MD ROUNDS AT BEDSIDE ASSESSING PATIENT. HE DOES NOT WANT TO REMOVE CHEST TUBES AT THIS TIME. AQUA SEAL MAY BE REMOVED AND MEDIPORE PLACED. CORDIS WILL BE D/C TODAY. NO FURTHER ORDERS OBTAINED AT THIS TIME.
[2018-06-02] MEDS: PANTOPRAZOLE 40 MG/10 ML VIAL IV SCH (10:01)
[2018-06-02] MEDS: GEMFIBROZIL 600 MG TAB PO SCH ×2 (10:01→21:55)
[2018-06-02] MEDS: PARoxetine 20 MG TAB PO SCH (10:01)
[2018-06-02] MEDS: POTASSIUM CHL 20 Meq TABLET PO SCH ×2 (10:01→21:55)
[2018-06-02] MEDS: DOCUSATE SOD 100 MG CAP PO SCH ×2 (10:01→21:55)
[2018-06-02] MEDS: ASCORBIC ACID 500 MG TAB PO SCH ×2 (10:01→22:05)
[2018-06-02] MEDS: NITROGLYCERIN 0.4MG/HR TOPICAL PATCH TD SCH (10:03)
[2018-06-02] MEDS: CHLORHEXIDINE 0.12% ORAL rinse 473ML MT SCH ×2 (10:03→22:00)
[2018-06-02] MEDS: METOPROLOL TARTRATE 25 MG TAB PO SCH ×2 (10:22→22:06)
--- NOTE | 2018-06-02 10:51 | NUR ---
CORDIS/INCISION CARE RIGHT IJ CORDIS REMOVED PER MD ORDER. PRESSURE HELD AND DRESSING APPLIED. NO SIGNS OF BLEEDING NOTED AT THIS TIME. AQUA SEAL REMOVED. INCISION IS CLEAN, WELL APPROXIMATED, NO SIGNS OF BLEEDING OR INFECTION. SITE CLEANSE WITH CHLORHEXIDINE SWAB. MEDIPORE DRESSING APPLIED. WILL CONTINUE TO MONITOR.
--- NOTE | 2018-06-02 10:54 | NUR ---
FAMILY PATIENT AND BROTHER AT BEDSIDE. UPDATED ON PLAN OF CARE.
--- NOTE | 2018-06-02 11:11 | NUR ---
ORDER AND CLINICALS FAXED TO [facility] REQUESTING 4 WHEELED WALKER BE DELIVERED TO BEDSIDE. PHONE [phone]
--- NOTE | 2018-06-02 11:30 | NUR ---
ACTIVITY Patient ambulated three laps around nursing station with walker, portable monitor, and 3l nasal cannula. Patient tolerated activity fair, coughing (productive) intermittently. Patient used heart pillow during coughing. Patient now resting in bed.
--- NOTE | 2018-06-02 11:50 | NUR ---
Pain management Patient C/O pain and requested medication. No drowsiness or respiratory depression noted. Fent 25mcg administered IV per MD order. Patient tolerated well with no adverse reactions note
--- NOTE | 2018-06-02 12:09 | NUR ---
REPORT REPORT CALLED TO RITCHIE MAHAN IN [place]. PATIENT THEN TRANSPORTED WITH OXYGEN, PORTABLE MONITOR, AND ALL PERSONAL BELONGING. PATIENT AND SON AT BEDSIDE. VITALS STABLE, CARE ENDORSED.
--- NOTE | 2018-06-02 12:11 | NUR ---
Admit to [place] REBECCA HENAOadmitted to [place] via gurney on marketing associate, and portable 02. Patient transfered to bed, connected to unit monitoring and oxygen, and weighed by bedscale. Patient oriented to Neo baca RN, unit, room, bed, and unit policies regarding patient care and visiting hours. All questions and concerns addressed, patient verbalized understanding. NOTE:
--- NOTE | 2018-06-02 13:03 | NUR ---
Per [facility], walker to be delivered today. Co-pay $9.24 and will be billed. Patient informed.
--- NOTE | 2018-06-02 13:57 | NUR ---
Respiratory note: [place] TX GIVEN VIA EZ PAP, PT TOLERATED TX WELL.
[2018-06-02] MEDS: SODIUM CHLORIDE 0.9% 500 ML IV SCH (14:05)
--- NOTE | 2018-06-02 15:59 | NUR ---
AMBULATION PATIENT AMBULATED AROUND NURSING STATION THREE TIME WITH STANDY ASSISTANCE HR 108, 02 SATURATION 93%. PATIENT PLACED IN BEDSIDE CHAIR WITH CALL LIGHT WITHIN REACH
--- NOTE | 2018-06-02 16:36 | NUR ---
EDUCATION PATIENT EDUCATED ON IMPORTANCE OF AMBULATING AND SITTING IN BEDISDE CHAIR RATHER THAN BEING IN BED. PATIENT VERBALIZED UNDERSTANDING
--- NOTE | 2018-06-02 16:58 | NUR ---
PARTIAL LINEN CHANGE PERFORMED AT THIS TIME
--- NOTE | 2018-06-02 18:00 | NUR ---
CHEST TUBE OUTPUT MEDIASTINAL 30 CC L/R PLEURAL 100 CC
--- NOTE | 2018-06-02 18:05 | NUR ---
PATIENT BACK IN BED
[2018-06-02] MEDS: AMIODARONE HCL 900 MG in DEXTROSE 500 ML IV SCH (20:15)
[2018-06-02] MEDS: ATORVASTATIN 20 MG TAB PO SCH (21:55)
[2018-06-02] MEDS: ALPRAZolam 0.5 MG TAB PO PRN (23:52)
--- NOTE | 2018-06-03 | NUR ---
Pt stated having panic attack. Blinds open for more of an open feeling to room. Fan on, lights on, tv on for distraction. Xanax provided for anxiety. Will continue to monitor.
[2018-06-03] MEDS: InsuLIN REG 1unit/0.01ml Soln (100units/ml) SC SCH ×6 (02:00→21:32)
--- NOTE | 2018-06-03 02:00 | NUR ---
Pt states feels better. Resting comfortably with eyes closed. Chest tubes remain patent and in place. No S/S of distress. Denies pain. Will continue to monitor.
[2018-06-03] MEDS: ACCU-CHEK COMFORT CURVE STRIP VI SCH ×6 (02:25→21:32)
[2018-06-03] MEDS: NICARDIPINE 25MG/250ML BAG KIT 250 ML IV SCH (03:05)
[2018-06-03 03:24] VITALS: BP 139/77
[2018-06-03] MEDS: ACETYLCYSTEINE 10 %(100MG/ML) SOL 4ML NEB SCH ×3 (06:46→21:59)
[2018-06-03] MEDS: IPRATROPIUM BROM 0.5 MG/2.5ML INH SOL NEB SCH ×5 (06:46→21:59)
[2018-06-03] MEDS: SULFASALAZINE 500 MG TAB PO SCH ×3 (07:27→21:31)
[2018-06-03] MEDS: FUROSEMIDE 40 MG TAB PO SCH ×2 (07:34→17:43)
[2018-06-03 07:44] VITALS: BP 119/61
[2018-06-03] MEDS: Glucerna Carbsteady SHAKE Vanilla 8oz PO SCH ×3 (08:00→18:27)
--- NOTE | 2018-06-03 08:07 | NUR ---
Pt remained stable throughout shift. 30ml out of bilat chest tube and 5ml out of the medial chest tube. Pt calm and resting watching TV. IV site flushed well. Report given, care endorsed.
[2018-06-03 08:11] LABS: Basophils # (auto) 0 uL; Basophils % (auto) 0.2 % (0.0-2.0); Eosinophils # (auto) 0.1 uL; Eosinophils % (auto) 2.1 % (0.0-7.0); Hematocrit 26.9 % (41.0-53.0); Hemoglobin 9.3 g/dL (13.5-17.5); Lymphocytes # (auto) 0.7 uL; Lymphocytes % (auto) 10.7 % (10.0-50.0); Mean Corpuscular Hemoglobin 33.3 pg (28.0-32.0); Mean Corpuscular Hgb Conc. 34.6 g/dL (32.0-36.0); Mean Corpuscular Volume 96.1 fL (80.0-100.0); Monocytes # (auto) 0.8 uL; Monocytes % (auto) 11.5 % (0.0-12.0); Neutrophils # (auto) 5.2 uL; Neutrophils % (auto) 75.5 % (37.0-80.0); Nucleated Red Blood Cells % 0.1 %; Platelet Count (auto) 161 10^3/uL (140-450); Red Blood Cells 2.79 10^6/uL (4.5-5.90); White Blood Cell 6.8 10^3/uL (4.4-10.8)
[2018-06-03 08:26] LABS: Albumin 3.1 g/dL (3.4-5.0); Magnesium 2.1 mg/dL (1.6-2.6); Potassium 3.5 mmol/L (3.5-5.1)
[2018-06-03 08:29] LABS: BUN/Creatinine Ratio 19.3; Bilirubin, Total 0.5 mg/dL (0.2-1.0); Total Protein 6.5 g/dL (6.4-8.2)
[2018-06-03] MEDS: PANTOPRAZOLE 40 MG/10 ML VIAL IV SCH (09:40)
[2018-06-03] MEDS: NITROGLYCERIN 0.4MG/HR TOPICAL PATCH TD SCH (09:44)
[2018-06-03] MEDS: HYDROcodone-ACET 7.5/325MG TAB PO PRN ×2 (09:44→17:40)
[2018-06-03] MEDS: METOPROLOL TARTRATE 25 MG TAB PO SCH ×2 (09:45→21:25)
[2018-06-03] MEDS: ASCORBIC ACID 500 MG TAB PO SCH ×2 (09:46→21:22)
[2018-06-03] MEDS: POTASSIUM CHL 20 Meq TABLET PO SCH ×2 (09:47→21:23)
[2018-06-03] MEDS: DOCUSATE SOD 100 MG CAP PO SCH ×2 (09:47→21:24)
[2018-06-03] MEDS: CHLORHEXIDINE 0.12% ORAL rinse 473ML MT SCH ×2 (09:49→21:28)
[2018-06-03] MEDS: PARoxetine 20 MG TAB PO SCH (09:50)
[2018-06-03] MEDS ORDERED: fentaNYL CITRATE 100 MCG/2 ML VL IV PRN (10:30)
[2018-06-03] MEDS ORDERED: PANTOPRAZOLE 40 MG TAB PO ONE (10:45)
[2018-06-03] MEDS: GEMFIBROZIL 600 MG TAB PO SCH ×2 (10:48→21:24)
[2018-06-03 12:00] VITALS: BP 106/56
--- NOTE | 2018-06-03 13:45 | NUR ---
Resumed care of patient at 0700. Orders reviewed and ongoing assessments being done. S/P CABG X 3, post op day 4. Remains alert and interacting appropriately. Out of bed for meals and has ambulated once around the nurses station today. Continue to c/o surgical chest pain during activity and when coughing. Continue to encouraged splinting with pillow during deep breathing and coughing. Medicating PRN with Dahlgren when requested. Also encouraging the importance of utilizing the IS, only up to 500-700ml, secondary to pain. Dr. Acuña, was in to round earlier today. Will not remove chest tubes today. Continue current plan of care.
[2018-06-03] MEDS ORDERED: ALBUTEROL SULF 2.5 MG/0.5ML(0.5%) NEB SOLN ONE (14:00)
[2018-06-03] MEDS: SODIUM CHLORIDE 0.9% 500 ML IV SCH (14:05)
[2018-06-03] MEDS: ALPRAZolam 0.5 MG TAB PO PRN (14:06)
--- NOTE | 2018-06-03 15:54 | NUR ---
Resting in bed at this time. In no acute distress. Poor appetite today, encouraged to drink oral supplement, reinforced the importance of nutrition for healing. Removed dressing over midsternal surgical incision. Incision well approximated with no drainage, bruised, but healing. Cleansed area with appropriate solution and left ABORIGINAL EDUCATION TEACHER. Reapplied bilateral Jonny Hose. Left leg, two small surgical incisions near ankle area and lateral knee. dry with no drainage, no dressing required.
[2018-06-03 16:00] VITALS: BP 108/66
--- NOTE | 2018-06-03 18:29 | NUR ---
Ambulated around the nurses station 4 times. Increase in surgical chest pain during ambulation. Continue to encourage deep breathing and use of IS. In chair awaiting dinner.
[2018-06-03 19:58] VITALS: BP 110/64
[2018-06-03] MEDS: AMIODARONE HCL 900 MG in DEXTROSE 500 ML IV SCH (20:15)
--- NOTE | 2018-06-03 20:45 | NUR ---
AMBULATION PATIENT AMBULATED AROUND NURSES STATION TWICE WITH STEADY GAIT USING WALKER. PATIENT CONNECTED TO DEPARTMENT HEAD JUNIOR COLLEGE. EXPLAINED TO PATIENT IMPORTANCE OF AMBULATING POST OPERATIVELY. PATIENT VERBALIZES UNDERSTANDING.
[2018-06-03] MEDS: ATORVASTATIN 20 MG TAB PO SCH (21:24)
[2018-06-03] MEDS: MORPHINE SULFATE 4 MG/ML SYR/VIAL IV PRN (21:26)
[2018-06-04] VITALS: BP 107/73
[2018-06-04] MEDS: HYDROcodone-ACET 7.5/325MG TAB PO PRN ×2 (00:33→17:35)
--- NOTE | 2018-06-04 00:33 | NUR ---
PAIN/INSOMNIA: Pt c/o pain in back at level 5/10 and an inability to sleep. Pt also states he is starting to fell anxious. Pt requesting medication for pain and also Xanax. Informed pt that Xanax not yet due and pt verbalized understanding. Pt medicated w/ Preston 7.5/325 PO for pain and Benadryl 50mg PO for insomnia. To continue to monitor pt.
[2018-06-04] MEDS: diphenhdrAMINE HCL 25 MG CAP PO PRN (00:34)
[2018-06-04] MEDS: InsuLIN REG 1unit/0.01ml Soln (100units/ml) SC SCH ×3 (02:00→10:00)
[2018-06-04] MEDS: ACCU-CHEK COMFORT CURVE STRIP VI SCH ×3 (02:11→10:13)
[2018-06-04] MEDS: SULFASALAZINE 500 MG TAB PO SCH ×3 (05:56→22:15)
[2018-06-04] MEDS: FUROSEMIDE 40 MG TAB PO SCH ×2 (05:56→17:37)
--- NOTE | 2018-06-04 05:58 | NUR ---
MORNING AMBULATION PATIENT AMBULATED ONCE AROUND NURSE'S STATION USING WALKER AND CONNECTED TO SONOGRAPHY TECHNOLOGIST. PATIENT REFUSED TO CONTINUE TO AMBULATE AND STATED HIS BACK HURT. PATIENT REQUESTING PAIN MEDICATION. WILL MEDICATE PER ORDERS.
--- NOTE | 2018-06-04 06:01 | NUR ---
LINEN CHANGE/MORNING HYGIENE/INCISION CARE INCISION SITES CLEANSED WITH IODINE PER ORDERS. PATIENT TOLERATED WELL. COMPLETE BED LINEN CHANGE DONE AND NEW GOWN PLACED ON PATIENT. PATIENT REFUSED MORNING BATH STATING " IT IS TOO COLD".CONTINUE CARE.
[2018-06-04 06:09] LABS: Basophils # (auto) 0 uL; Basophils % (auto) 0.3 % (0.0-2.0); Eosinophils # (auto) 0.1 uL; Hematocrit 29.9 % (41.0-53.0); Hemoglobin 10.6 g/dL (13.5-17.5); Lymphocytes # (auto) 0.9 uL; Mean Corpuscular Hemoglobin 33.8 pg (28.0-32.0); Mean Corpuscular Hgb Conc. 35.5 g/dL (32.0-36.0); Mean Corpuscular Volume 95.4 fL (80.0-100.0); Monocytes # (auto) 0.8 uL; Monocytes % (auto) 11.4 % (0.0-12.0); Neutrophils # (auto) 5.3 uL; Neutrophils % (auto) 74.3 % (37.0-80.0); Nucleated Red Blood Cells % 0.5 %; Platelet Count (auto) 201 10^3/uL (140-450); Red Blood Cells 3.13 10^6/uL (4.5-5.90); Red Cell Distribution Width 14.4 % (11.8-14.3); White Blood Cell 7.2 10^3/uL (4.4-10.8)
[2018-06-04 06:13] LABS: BUN/Creatinine Ratio 20.7; Calcium 9.4 mg/dL (8.5-10.1); Potassium 3.5 mmol/L (3.5-5.1)
[2018-06-04] MEDS: MORPHINE SULFATE 4 MG/ML SYR/VIAL IV PRN (06:19)
[2018-06-04] MEDS: IPRATROPIUM BROM 0.5 MG/2.5ML INH SOL NEB SCH ×5 (06:30→22:35)
[2018-06-04] MEDS: ACETYLCYSTEINE 10 %(100MG/ML) SOL 4ML NEB SCH ×4 (06:31→22:35)
[2018-06-04 08:00] VITALS: BP 114/64
[2018-06-04] MEDS: Glucerna Carbsteady SHAKE Vanilla 8oz PO SCH ×3 (08:00→17:58)
--- NOTE | 2018-06-04 08:00 | NUR ---
Opening Shift Note Assumed care of patient, awake and alert. No S/S of distress/SOB. Complains of chest pain when coughing, uses pillow to relieve discomfort. Placed back ED stockings. Patient refuses to eat breakfast at this time. Bed locked on low position, side rails up x2, bed alarms on at all times, call pickard within reach, instructed on POC and to call for assist PRN, will continue to monitor for changes Q1hr and PRN.
--- NOTE | 2018-06-04 09:30 | NUR ---
Dr Ca at bedside, updated on patient's status. Made aware of patient's poor oral intake, will give Reglan PRN. Patient complained of RT low back pain, plan to do renal US, will facilitate. Will carry out new orders.
[2018-06-04] MEDS: DOCUSATE SOD 100 MG CAP PO SCH ×2 (10:10→22:15)
[2018-06-04] MEDS: CHLORHEXIDINE 0.12% ORAL rinse 473ML MT SCH ×2 (10:10→22:24)
[2018-06-04] MEDS: ASPirin-EC 81 mg tab PO SCH (10:10)
[2018-06-04] MEDS: PANTOPRAZOLE 40 MG TAB PO SCH (10:10)
[2018-06-04] MEDS: PARoxetine 20 MG TAB PO SCH (10:10)
[2018-06-04] MEDS: POTASSIUM CHL 20 Meq TABLET PO SCH ×2 (10:11→20:47)
[2018-06-04] MEDS: ASCORBIC ACID 500 MG TAB PO SCH (10:11)
[2018-06-04] MEDS: METOPROLOL TARTRATE 25 MG TAB PO SCH ×2 (10:11→22:15)
[2018-06-04] MEDS: NITROGLYCERIN 0.4MG/HR TOPICAL PATCH TD SCH (10:12)
[2018-06-04] MEDS: GEMFIBROZIL 600 MG TAB PO SCH ×2 (10:18→22:15)
--- NOTE | 2018-06-04 10:50 | NUR ---
Patient ambulated on the hallway with PT, fall precautions in placed. Patient tolerated 2 laps.
--- NOTE | 2018-06-04 11:02 | NUR ---
Patient out of bed sitting on bedside chair. Patient tolerating well.
--- NOTE | 2018-06-04 11:31 | NUR ---
Patient back to room from bedside chair.
--- NOTE | 2018-06-04 11:50 | NUR ---
Dr Ojeda at bedside, updated on patient's status. Will carry out new orders.
[2018-06-04 11:58] VITALS: BP 125/61
[2018-06-04] MEDS: ALPRAZolam 0.5 MG TAB PO PRN ×2 (12:14→20:53)
[2018-06-04] MEDS: SODIUM CHLORIDE 0.9% 500 ML IV SCH (13:54)
[2018-06-04 15:50] VITALS: BP 112/66
--- NOTE | 2018-06-04 19:30 | NUR ---
Opening Shift Note Assumed care of patient, awake and alert. No S/S of distress/SOB or pain. Instructed on POC and to call for assist PRN, will continue to monitor for changes Q1hr and PRN. Complete physical assessment done at this time: see interventions. Per day shift NEGRITO Nails, awaiting call back from Dr. Harris for potassium replacement orders. Awaiting call back.
[2018-06-04 19:57] VITALS: BP 121/67
--- NOTE | 2018-06-04 20:35 | NUR ---
DR. HARTLEY AT BEDSIDE WITH PATIENT STATING HE WILL REMOVE CHEST TUBE TOMORROW MORNING
[2018-06-04] MEDS: POTASSIUM CHL 20 Meq TABLET PO PRN (20:39)
[2018-06-04] MEDS ORDERED: MAGNESIUM OXIDE 400 MG TAB ONE (20:42)
[2018-06-04] MEDS ORDERED: MAGNESIUM OXIDE 400 MG TAB PO ONE (20:45)
--- NOTE | 2018-06-04 20:50 | NUR ---
AT BEDSIDE STATING TO NOT ADMINISTER SCHEDULED 2200 POTASSIUM DT PRN K REPLACEMENT WILL FOLLOW THROUGH
[2018-06-04] MEDS ORDERED: ALPRAZolam 0.5 MG TAB ONE (20:52)
[2018-06-04] MEDS: ATORVASTATIN 20 MG TAB PO SCH (22:15)
[2018-06-05] VITALS: BP 112/64
[2018-06-05] MEDS: POTASSIUM CHL 20 Meq TABLET PO PRN (00:02)
[2018-06-05] MEDS: HYDROcodone-ACET 7.5/325MG TAB PO PRN ×2 (03:09→13:10)
[2018-06-05 04:00] VITALS: BP 125/61
--- NOTE | 2018-06-05 05:04 | NUR ---
PATIENT OFFERED MORNING BATH AND REFUSED
[2018-06-05 05:44] LABS: Basophils # (auto) 0 uL; Basophils % (auto) 0.3 % (0.0-2.0); Eosinophils # (auto) 0.1 uL; Eosinophils % (auto) 1.6 % (0.0-7.0); Hematocrit 30.6 % (41.0-53.0); Hemoglobin 10.4 g/dL (13.5-17.5); Lymphocytes # (auto) 0.8 uL; Lymphocytes % (auto) 12.6 % (10.0-50.0); Mean Corpuscular Hemoglobin 33.3 pg (28.0-32.0); Mean Corpuscular Hgb Conc. 34.2 g/dL (32.0-36.0); Mean Corpuscular Volume 97.5 fL (80.0-100.0); Monocytes # (auto) 0.8 uL; Monocytes % (auto) 12.8 % (0.0-12.0); Neutrophils # (auto) 4.8 uL; Neutrophils % (auto) 72.7 % (37.0-80.0); Nucleated Red Blood Cells % 0.3 %; Platelet Count (auto) 152 10^3/uL (140-450); Red Blood Cells 3.14 10^6/uL (4.5-5.90); Red Cell Distribution Width 14.6 % (11.8-14.3); White Blood Cell 6.5 10^3/uL (4.4-10.8)
[2018-06-05 05:57] LABS: Albumin 3.1 g/dL (3.4-5.0); Calcium 8.9 mg/dL (8.5-10.1); Magnesium 2.4 mg/dL (1.6-2.6); Potassium 4.4 mmol/L (3.5-5.1)
[2018-06-05 06:00] LABS: BUN/Creatinine Ratio 24.6; Bilirubin, Total 0.6 mg/dL (0.2-1.0); Total Protein 6.8 g/dL (6.4-8.2)
[2018-06-05] MEDS: SULFASALAZINE 500 MG TAB PO SCH ×3 (06:15→21:39)
[2018-06-05] MEDS: FUROSEMIDE 40 MG TAB PO SCH (06:25)
--- NOTE | 2018-06-05 06:30 | NUR ---
PATIENT AMBULATED 2 LAPS AROUND NURSE'S STATION, TOLERATED WELL AND BACK IN BED WITHOUT INCIDENT.
[2018-06-05] MEDS: MORPHINE SULFATE 4 MG/ML SYR/VIAL IV PRN (07:07)
[2018-06-05] MEDS: IPRATROPIUM BROM 0.5 MG/2.5ML INH SOL NEB SCH ×4 (07:12→18:42)
[2018-06-05] MEDS: ACETYLCYSTEINE 10 %(100MG/ML) SOL 4ML NEB SCH ×3 (07:12→22:58)
--- NOTE | 2018-06-05 07:30 | NUR ---
CARE ENDORSED TO DAY SHIFT RN PATIENT IN BED NO DISTRESS/SOB, MEDICATED FOR PAIN. CALL LIGHT WITHIN EASY REACH.
--- NOTE | 2018-06-05 07:40 | NUR ---
Opening Shift Note Assumed care of patient at 0730, awake and alert. No S/S of distress/SOB or pain. Chest tube draining to serosanguinous output, 180ml from previous shift per report, plan to removed chest tube and pacer wires today, awaiting Dr Ca. Bed locked on low position, side rails up x2, bed alarms on at all times, call pickard within reach, instructed on POC and to call for assist PRN, will continue to monitor for changes Q1hr and PRN.
[2018-06-05] MEDS ORDERED: fentaNYL CITRATE 100 MCG/2 ML VL IV ONE (07:45)
--- NOTE | 2018-06-05 07:45 | NUR ---
Dr Ca at bedside, updated on patient's status. Chest tube removed. Patient tolerated procedure well. Will continue to monitor.
[2018-06-05 08:00] VITALS: BP 114/64
[2018-06-05] MEDS: MAGNESIUM OXIDE 400 MG TAB PO SCH (10:17)
[2018-06-05] MEDS: ALPRAZolam 0.5 MG TAB PO PRN ×2 (10:17→21:56)
[2018-06-05] MEDS: POTASSIUM CHL 20 Meq TABLET PO SCH (10:18)
[2018-06-05] MEDS: PANTOPRAZOLE 40 MG TAB PO SCH (10:18)
[2018-06-05] MEDS: PARoxetine 20 MG TAB PO SCH (10:18)
[2018-06-05] MEDS: DOCUSATE SOD 100 MG CAP PO SCH ×2 (10:18→21:39)
[2018-06-05] MEDS: ASPirin-EC 81 mg tab PO SCH (10:19)
[2018-06-05] MEDS: METOPROLOL TARTRATE 25 MG TAB PO SCH ×2 (10:19→21:52)
[2018-06-05] MEDS: NITROGLYCERIN 0.4MG/HR TOPICAL PATCH TD SCH (10:20)
[2018-06-05] MEDS: Glucerna Carbsteady SHAKE Vanilla 8oz PO SCH ×3 (10:24→17:45)
[2018-06-05] MEDS: CHLORHEXIDINE 0.12% ORAL rinse 473ML MT SCH ×2 (10:24→21:47)
--- NOTE | 2018-06-05 11:00 | NUR ---
Patient ambulated three laps around nurse station with PT, fall precautions in placed. Patient tolerated well.
[2018-06-05] MEDS: GEMFIBROZIL 600 MG TAB PO SCH ×2 (11:14→21:46)
--- NOTE | 2018-06-05 11:33 | NUR ---
Nutrition Follow-up Notes Wt.:80.0 kg Pt`s sleeping with no family by beside. pt s/p CABG no distress noted. pt is currently on CCHO 60 gm/meal diet with Glucerna 1 carton tid with inadequate PO of < 50% x 4 per RN doc Est. Needs BW 72k-2160kcal (25-30kcal/kgBW), 72-86 gms pro (1.0-1.2 gms/kgBW). Will continue to monitor pertinent labs and reassess nutrient need prn Labs: BUN 31 H, GLU 117 H, ALB 3.1 L. Skin: Javier scale 19, low risk per software integration developer. GI: Pt has no BM reported constipated per software integration developer. PES: Altered nutrition related lab values r/t acute/chronic medical condition aeb elev BUN, hypocalcemia, hyperglycemia Inadequate PO intake r/t current medical condition aeb pt`s recorded PO < 50% Will continue to monitor PO intake, skin status, pertinent labs and weight trend. F/u in 3-5 days. Rec.: 1) continue assistance with meals. 2) consider cardiac along with current diet. 3) refer to CDE on DC. 4) continue current plan of care
--- NOTE | 2018-06-05 11:33 | NUR ---
Dr Ojeda at bedside, updated on patient's status. Will carry out new orders.
[2018-06-05 11:53] VITALS: BP 124/76
[2018-06-05] MEDS: SODIUM CHLORIDE 0.9% 500 ML IV SCH (13:10)
--- NOTE | 2018-06-05 14:40 | NUR ---
Patient watching "Leaving the hospital after heart surgery" DVD.
[2018-06-05 15:46] VITALS: BP 96/55
--- NOTE | 2018-06-05 16:03 | NUR ---
Chest tube insertion site dressing dry and intact.
[2018-06-05 19:50] VITALS: BP 120/63
--- NOTE | 2018-06-05 20:10 | NUR ---
ASSISTED WITH AMBULATION WITHIN THE UNIT, CONNECTED TO CYLINDER HEAD ASSEMBLER, ABLE TO COMPLETE 2 LAPS THEN ASSISTED BACK ON BED AND CONNECTED TO BS MONITOR . NO DISTRESS NOTED.
[2018-06-05] MEDS: ATORVASTATIN 20 MG TAB PO SCH (21:39)
--- NOTE | 2018-06-05 22:59 | NUR ---
RT NOTE: PT REFUSED MED NEB TX @ THIS TIME. NO SOB OR DISTRESS NOTED. SPO2 6% ON ROOM AIR, HR 78.
[2018-06-06] VITALS (7 sets, daily range): BP systolic 100–135; BP diastolic 54–67
[2018-06-06] MEDS: HYDROcodone-ACET 7.5/325MG TAB PO PRN ×2 (03:39→15:34)
--- NOTE | 2018-06-06 04:45 | NUR ---
INCENTIVE SPIROMETER ABLE TO USE IS X 10 BREATHES MAX [id number]
--- NOTE | 2018-06-06 05:00 | NUR ---
AMBULATION ASSISTED WITH AMBULATION WITHIN THE UNIT, CONNECTED TO SET UP WORKER AND PORTABLE O2 @ 2L/MIN, DID SOME SHORT BREAKS IN BETWEEN WALKS WITH SOME SOB BUT WELL TOLERATED. ABLE TO COMPLETE 4 LAPS AND ASSISTED BACK TO ROOM, SITTING ON A CHAIR CONNECTED TO BS MONITOR AND O2. NO DISTRESS NOTED.
[2018-06-06 05:46] LABS: BUN/Creatinine Ratio 26.5; Calcium 8.2 mg/dL (8.5-10.1); Potassium 3.7 mmol/L (3.5-5.1)
[2018-06-06] MEDS: ACETYLCYSTEINE 10 %(100MG/ML) SOL 4ML NEB SCH ×3 (06:29→14:14)
[2018-06-06] MEDS: IPRATROPIUM BROM 0.5 MG/2.5ML INH SOL NEB SCH ×4 (06:29→14:13)
[2018-06-06] MEDS: SULFASALAZINE 500 MG TAB PO SCH ×2 (06:33→15:29)
[2018-06-06] MEDS ORDERED: FUROSEMIDE 40 MG TAB PO SCH (07:00)
--- NOTE | 2018-06-06 07:45 | NUR ---
Opening Shift Note Assumed care of patient, awake and alert. No S/S of distress/SOB or pain. Chest tube insertion sitex3 on mid chest dressed with petroleum gauzed and foam tape dry and intact. Bed locked on low position, side ails up x2, bed alarms on at all times, call pickard within reach, instructed on POC and to call for assist PRN, will continue to monitor for changes Q1hr and PRN.
--- NOTE | 2018-06-06 08:15 | NUR ---
Paged medical case manager/case management social worker regarding patient's planned discharge today. Awaiting call back.
[2018-06-06] MEDS: Glucerna Carbsteady SHAKE Vanilla 8oz PO SCH ×2 (08:28→11:34)
[2018-06-06] MEDS: CHLORHEXIDINE 0.12% ORAL rinse 473ML MT SCH (09:11)
[2018-06-06] MEDS: GEMFIBROZIL 600 MG TAB PO SCH (09:11)
[2018-06-06] MEDS: MAGNESIUM OXIDE 400 MG TAB PO SCH (09:12)
[2018-06-06] MEDS: DOCUSATE SOD 100 MG CAP PO SCH (09:12)
[2018-06-06] MEDS: ASPirin-EC 81 mg tab PO SCH (09:12)
[2018-06-06] MEDS: PARoxetine 20 MG TAB PO SCH (09:12)
[2018-06-06] MEDS: PANTOPRAZOLE 40 MG TAB PO SCH (09:13)
[2018-06-06] MEDS: NITROGLYCERIN 0.4MG/HR TOPICAL PATCH TD SCH (09:14)
[2018-06-06] MEDS: METOPROLOL TARTRATE 25 MG TAB PO SCH (09:17)
--- NOTE | 2018-06-06 09:28 | NUR ---
Alex PT and this RN at bedside to ambulated patient. Patient refusing to ambulate at this time. Patient states "I walked at 5:00 this morning, I'm still tired." Plan to try to ambulate patient around lunch time.
[2018-06-06] MEDS ORDERED: POTASSIUM CHL 20 Meq TABLET PO SCH (10:00)
--- NOTE | 2018-06-06 10:26 | NUR ---
casework manager Irma at bedside. Patient's walker at bedside. Will confirm with Dr Ca if he wants home health. Attempted to page Dr Ca but per gluing machine operator electronic they don't page him. [facility] per Stacia Ca is not in yet.
[2018-06-06] MEDS: ALPRAZolam 0.5 MG TAB PO PRN (11:33)
--- NOTE | 2018-06-06 11:40 | NUR ---
Called cardiology office and spoke to Stacia, per Stacia Ca is not in yet.
--- NOTE | 2018-06-06 13:51 | NUR ---
Home medication prescriptions given to [facility]. Patient's own medications given to patient's family.
--- NOTE | 2018-06-06 14:00 | NUR ---
Wound photograph of mid sternum and LT lower extermity taken. Discharge MRSA sent to laboratory.
[2018-06-06] MEDS: SODIUM CHLORIDE 0.9% 500 ML IV SCH (14:05)
--- NOTE | 2018-06-06 14:10 | NUR ---
Irma Oneill at bedside, speaking to patient and family.
--- NOTE | 2018-06-06 14:10 | NUR ---
Attempted to get discharge follow-up appoinment from Dr Luca Martin's office but office is closed. Dr Martin's office information provided and given to patient and family. Instructed patient and family to make their own appoinment.
--- NOTE | 2018-06-06 14:20 | NUR ---
Follow-up appoinment with Dr Domenico fay, spoke to Stacia. Discharge follow-up appoinment information given to patient and family.
--- NOTE | 2018-06-06 14:21 | NUR ---
SCHEDULED MN TX NOT GIVEN. PT REFUSED MN TX. PT ESTATES HE DOES NOT NEED IT ANYMORE. PT ON RA, 94% O2 SATS, HR 77BPM, RR19. NO SOB OR ANY OTHER RESPIRATORY DISTRESS NOTICED. WILL CONTINUE TO MONITOR PT.
--- NOTE | 2018-06-06 15:00 | NUR ---
Irma Oneill at bedside, educated patient on coughing/deep breathing, sex, driving, lifting, walking, showering. family watched "Leaving Hospital after Surgery" DVD.
--- NOTE | 2018-06-06 15:16 | NUR ---
Spoke to Irma Espinosa and Rd, made them patient's walker at bedside not a four wheeled walker. Spoke to Dr Ca, made aware patient has the wrong walker at bedside. Per Dr Ca patient can go home without the four wheeled walker, it's ok to be delivered at home later.
--- NOTE | 2018-06-06 15:37 | NUR ---
Spoke to Bonded Strand Operator maci Sultana four wheeled walker will be delivered at home.
--- NOTE | 2018-06-06 15:42 | NUR ---
SPOKE WITH [facility] AT [facility] THEY WILL DELIVER NEW WALKER TO PATIENT'S HOME AND EXCHANGE IT FOR THE WRONG ONE THAT WAS DELIVERED. PHONE [phone].
--- NOTE | 2018-06-06 16:20 | NUR ---
Spoke to Irma Espniosa, per Irma Espinosa patient will have [facility]. Patient and family informed.
--- NOTE | 2018-06-06 16:32 | NUR ---
Discharge packet given to patient's and son Al. Instruction to resume home meds except change in Lisinopril dose given. Patient and family verbalized understanding.
--- NOTE | 2018-06-06 16:37 | NUR ---
IV removal IV LT AC discontinued with sterile technique, catheter fully intact. Pressure dressing applied to site. Patient tolerated procedure well. Discharged with aftercare instructions per MD.
--- NOTE | 2018-06-06 16:55 | NUR ---
Discharge instructions given as ordered. Encourage to follow up with PMD as instructed. All questions and concerns addressed. Patient verbalized understanding. Home medications held in Pharmacy returned to patient. IV removed with catheter intact, pressure dressing applied. Patient taken to vehicle via wheelchair with all personal belongings, accompanied by staff and family member. No distress noted at time of departure.
--- NOTE | 2018-06-06 17:15 | NUR ---
assessment Patient is a 77 year old male who is alert and oriented. Patients cognitive abilities are intact. Prior to admission patient lived home with family and functioned independently. Per patient he will return home to his prior living arrangements post discharge and family will transport him home. Patients PCP is Dr Martin. I informed patient he has a right to speak to a manager social responsibility regarding all care. I informed patient he has a right to participate in any and all discharge planning. Patient is aware of visiting hours on the hospital floor. I informed patient he has a right to privacy. Patient does not have a POA and advanced directive. I have offered patient information on POA and advanced directives. I informed the patient the advantages and benefits of having an Advanced Directive. Patient verbalized understanding and agreed to discharge plan. Rd telephonic nurse case manager has satisfies md order for stephan. Per consult [facility]. MD order has been sent to [facility] auth #[id number]. Galo Flores at [facility] service will start on 06/08/18. Addendum: 06/06/18 at 1721 by Irma MENJIVAR Amended: Links added.
[2018-06-06] MEDS ORDERED: NICARDIPINE IV ONE (17:52)
[2018-06-06] MEDS ORDERED: DOPamine 1600mCg/ml 400MG/250ml NSorD5 KIT/BAG IV ONE (17:52)
== END 2018-06-06 17:53 | disposition home health service (06) | DRG 233 ==
LOC: CATH 09:26 → TELE-WESTW 15:55 → ICU WEST 05-29 22:54 → DOU IN ICU 06-02 11:58
PROVIDERS: ADMIT Internal Medicine; ATTEND Internal Medicine
PROC: B2111ZZ Fluoroscopy of Multiple Coronary Arteries using Low Osmolar Contrast (ICD-10-PCS; 2018-05-28)
PROC: B2151ZZ Fluoroscopy of Left Heart using Low Osmolar Contrast (ICD-10-PCS; 2018-05-28)
PROC: 30233N1 Transfusion of Nonautologous Red Blood Cells into Peripheral Vein, Percutaneous Approach (ICD-10-PCS; 2018-05-29)
PROC: 4A023N7 Measurement of Cardiac Sampling and Pressure, Left Heart, Percutaneous Approach (ICD-10-PCS; 2018-05-30)
PROC: 02100Z9 Bypass Coronary Artery, One Artery from Left Internal Mammary, Open Approach (ICD-10-PCS; 2018-05-30)
PROC: 06BQ4ZZ Excision of Left Saphenous Vein, Percutaneous Endoscopic Approach (ICD-10-PCS; 2018-05-30)
PROC: 5A1221Z Performance of Cardiac Output, Continuous (ICD-10-PCS; 2018-05-30)
PROC: 021109W Bypass Coronary Artery, Two Arteries from Aorta with Autologous Venous Tissue, Open Approach (ICD-10-PCS; principal; 2018-05-30 07:58)
PROC: 5A09357 Assistance with Respiratory Ventilation, Less than 24 Consecutive Hours, Continuous Positive Airway Pressure (ICD-10-PCS; 2018-05-31)
PROC: 5A09357 Assistance with Respiratory Ventilation, Less than 24 Consecutive Hours, Continuous Positive Airway Pressure (ICD-10-PCS; 2018-06-01)
DX: I25.110 Atherosclerotic heart disease of native coronary artery with unstable angina pectoris (principal); J96.00 Acute respiratory failure, unspecified whether with hypoxia or hypercapnia; K52.9 Noninfective gastroenteritis and colitis, unspecified; F32.9 Major depressive disorder, single episode, unspecified; E11.9 Type 2 diabetes mellitus without complications; E78.00 Pure hypercholesterolemia, unspecified; E78.5 Hyperlipidemia, unspecified; D64.9 Anemia, unspecified; I11.9 Hypertensive heart disease without heart failure; K59.00 Constipation, unspecified; Z66 Do not resuscitate; Z85.46 Personal history of malignant neoplasm of prostate; Z95.1 Presence of aortocoronary bypass graft; Z87.891 Personal history of nicotine dependence
CPT/HCPCS: 36415; 36600; 71045; 71250; 76775; 80048; 80053; 80061; 81001; 82805; 82962; 83036; 83735; 84100; 84132; 85025; 85576; 85610; 85730; 86850; 86900; 86901; 86920; 87081; 93005; 93306; 93886; 93970; 93971; 94002; 94640; 94660; 97116; 97163; 97530; 99152; A6257; C1751; C1768; C9113; G0378; J0131; J0153; J0610; J0690; J0696; J1100; J1642; J1644; J1815; J1885; J2250; J2405; J2440; J2704; J2720; J3480; J7060

== ENCOUNTER → 2018-06-19 | Outpatient (CLI) | payer OTHER ==
[~2018-06-19] MED LIST changes: +SULF500T37 PO; -SULF500T8 PO
[2018-06-19 10:10] LABS: Basophils # (auto) 0 uL; Basophils % (auto) 0.6 % (0.0-2.0); Eosinophils # (auto) 0.1 uL; Eosinophils % (auto) 1.8 % (0.0-7.0); Hematocrit 37.1 % (41.0-53.0); Hemoglobin 12.3 g/dL (13.5-17.5); Lymphocytes # (auto) 0.8 uL; Lymphocytes % (auto) 13.9 % (10.0-50.0); Mean Corpuscular Hemoglobin 32.9 pg (28.0-32.0); Mean Corpuscular Hgb Conc. 33.3 g/dL (32.0-36.0); Mean Corpuscular Volume 98.8 fL (80.0-100.0); Monocytes # (auto) 0.7 uL; Monocytes % (auto) 11.1 % (0.0-12.0); Neutrophils # (auto) 4.3 uL; Neutrophils % (auto) 72.6 % (37.0-80.0); Platelet Count (auto) 231 10^3/uL (140-450); Red Blood Cells 3.75 10^6/uL (4.5-5.90); Red Cell Distribution Width 15.9 % (11.8-14.3); White Blood Cell 5.9 10^3/uL (4.4-10.8)
[2018-06-19 10:24] LABS: Urine Bacteria NONE SEEN /hpf (None Seen); Urine Blood 2+ /uL (Negative); Urine Mucus FEW (None Seen); Urine Specific Gravity 1.026 (1.001-1.035); Urine WBC 9 /hpf (0 - 3)
[2018-06-19 11:49] LABS: Potassium 4.8 mmol/L (3.5-5.1)
[2018-06-19 11:57] LABS: Albumin 3.6 g/dL (3.4-5.0); BUN/Creatinine Ratio 19.3; Bilirubin, Total 0.5 mg/dL (0.2-1.0); Calcium 8.9 mg/dL (8.5-10.1); Total Protein 7.5 g/dL (6.4-8.2)
== END | disposition home or self-care (01) ==
LOC: LAB 09:42
PROVIDERS: ATTEND Thoracic Surgery (Cardiothoracic Vascular Surgery)
DX: I25.10 Atherosclerotic heart disease of native coronary artery without angina pectoris (principal); R30.0 Dysuria; Z95.1 Presence of aortocoronary bypass graft
CPT/HCPCS: 36415; 80053; 81001; 85025; 87086; 87088; 87186

== ENCOUNTER → 2018-07-07 | Outpatient (CLI) | payer OTHER ==
[2018-07-07 16:14] LABS: Basophils # (auto) 0 uL; Basophils % (auto) 0.7 % (0.0-2.0); Eosinophils # (auto) 0.1 uL; Eosinophils % (auto) 2.9 % (0.0-7.0); Hematocrit 38.5 % (41.0-53.0); Hemoglobin 13.1 g/dL (13.5-17.5); Lymphocytes # (auto) 1.2 uL; Lymphocytes % (auto) 26.3 % (10.0-50.0); Mean Corpuscular Hemoglobin 32.3 pg (28.0-32.0); Monocytes # (auto) 0.8 uL; Monocytes % (auto) 16.3 % (0.0-12.0); Neutrophils # (auto) 2.5 uL; Neutrophils % (auto) 53.8 % (37.0-80.0); Nucleated Red Blood Cells % 0.1 %; Platelet Count (auto) 171 10^3/uL (140-450); Red Blood Cells 4.06 10^6/uL (4.5-5.90); Red Cell Distribution Width 15.2 % (11.8-14.3); White Blood Cell 4.7 10^3/uL (4.4-10.8)
[2018-07-07 16:36] LABS: Albumin 4.1 g/dL (3.4-5.0); Calcium 9.1 mg/dL (8.5-10.1)
[2018-07-07 16:39] LABS: BUN/Creatinine Ratio 28.4; Bilirubin, Total 0.2 mg/dL (0.2-1.0); Total Protein 7.9 g/dL (6.4-8.2)
== END | disposition home or self-care (01) ==
LOC: LAB 15:23
PROVIDERS: ATTEND Internal Medicine
DX: E78.5 Hyperlipidemia, unspecified (principal); C61 Malignant neoplasm of prostate; R30.0 Dysuria
CPT/HCPCS: 36415; 80053; 83615; 84153; 84154; 84443; 85025

== ENCOUNTER → 2018-07-24 | Outpatient (CLI) | payer OTHER | END | disposition home or self-care (01) | LOC: XYW 09:12 | PROVIDERS: ATTEND Internal Medicine | DX: I08.8 Other rheumatic multiple valve diseases (principal) | CPT/HCPCS: 93306 ==

== ENCOUNTER → 2018-12-01 | Outpatient (CLI) | payer OTHER ==
[2018-12-01 09:37] LABS: Basophils # (auto) 0 uL; Basophils % (auto) 0.4 % (0.0-2.0); Eosinophils # (auto) 0.2 uL; Eosinophils % (auto) 4.7 % (0.0-7.0); Hemoglobin 14.3 g/dL (13.5-17.5); Lymphocytes # (auto) 0.8 uL; Lymphocytes % (auto) 26.6 % (10.0-50.0); Mean Corpuscular Hemoglobin 33.4 pg (28.0-32.0); Mean Corpuscular Hgb Conc. 34.2 g/dL (32.0-36.0); Mean Corpuscular Volume 97.7 fL (80.0-100.0); Monocytes # (auto) 0.4 uL; Monocytes % (auto) 11.2 % (0.0-12.0); Neutrophils # (auto) 1.8 uL; Neutrophils % (auto) 57.1 % (37.0-80.0); Platelet Count (auto) 234 10^3/uL (140-450); Red Cell Distribution Width 12.9 % (11.8-14.3); White Blood Cell 3.2 10^3/uL (4.4-10.8)
[2018-12-01 09:49] LABS: Albumin 4.2 g/dL (3.4-5.0); Calcium 9.1 mg/dL (8.5-10.1); Potassium 3.7 mmol/L (3.5-5.1)
[2018-12-01 09:53] LABS: BUN/Creatinine Ratio 19.4; Bilirubin, Total 0.6 mg/dL (0.2-1.0); Total Protein 7.4 g/dL (6.4-8.2)
== END | disposition home or self-care (01) ==
LOC: LAB 09:01
PROVIDERS: ATTEND Internal Medicine
DX: C61 Malignant neoplasm of prostate (principal)
CPT/HCPCS: 36415; 80053; 83615; 84153; 85025

== ENCOUNTER → 2018-12-09 | Outpatient (CLI) | payer OTHER ==
[2018-12-09 10:48] LABS: Basophils # (auto) 0 uL; Basophils % (auto) 0.7 % (0.0-2.0); Eosinophils # (auto) 0.1 uL; Hematocrit 46.2 % (41.0-53.0); Hemoglobin 15.7 g/dL (13.5-17.5); Lymphocytes # (auto) 0.8 uL; Lymphocytes % (auto) 23.4 % (10.0-50.0); Mean Corpuscular Hemoglobin 33.2 pg (28.0-32.0); Mean Corpuscular Volume 97.6 fL (80.0-100.0); Monocytes # (auto) 0.3 uL; Monocytes % (auto) 9.6 % (0.0-12.0); Neutrophils # (auto) 2.1 uL; Neutrophils % (auto) 63.3 % (37.0-80.0); Nucleated Red Blood Cells % 0.1 %; Platelet Count (auto) 244 10^3/uL (140-450); Red Blood Cells 4.73 10^6/uL (4.5-5.90); Red Cell Distribution Width 12.7 % (11.8-14.3); White Blood Cell 3.4 10^3/uL (4.4-10.8)
[2018-12-09 11:09] LABS: INR 0.97 (0.9-1.15); Partial Thromboplastin Time 24.6 sec (23.64-32.05)
[2018-12-09 13:04] LABS: Potassium 4.9 mmol/L (3.5-5.1)
[2018-12-09 13:11] LABS: Albumin 4.7 g/dL (3.4-5.0); BUN/Creatinine Ratio 18.1; Bilirubin, Total 0.6 mg/dL (0.2-1.0); Calcium 9.8 mg/dL (8.5-10.1); Total Protein 8.3 g/dL (6.4-8.2)
== END | disposition home or self-care (01) ==
LOC: LAB 09:35
PROVIDERS: ATTEND Internal Medicine
DX: Z01.812 Encounter for preprocedural laboratory examination (principal); I10 Essential (primary) hypertension; E78.5 Hyperlipidemia, unspecified
CPT/HCPCS: 36415; 80053; 85025; 85610; 85730

== ENCOUNTER → 2019-03-19 | Outpatient (CLI) | payer OTHER ==
[~2019-03-19] MED LIST changes: +ASPI-404 PO; -ASPI81TA27 PO; -MELA10CA OR
[2019-03-19 10:28] LABS: Basophils # (auto) 0 uL; Eosinophils # (auto) 0.2 uL; Hemoglobin 14.5 g/dL (13.5-17.5); Monocytes # (auto) 0.4 uL; White Blood Cell 4.1 10^3/uL (4.4-10.8)
[2019-03-19 10:35] LABS: Basophils % (auto) 0.8 % (0.0-2.0); Eosinophils % (auto) 5.5 % (0.0-7.0); Hematocrit 41.5 % (41.0-53.0); Lymphocytes % (auto) 23.8 % (10.0-50.0); Mean Corpuscular Hemoglobin 34.3 pg (28.0-32.0); Mean Corpuscular Hgb Conc. 34.9 g/dL (32.0-36.0); Mean Corpuscular Volume 98.3 fL (80.0-100.0); Monocytes % (auto) 8.9 % (0.0-12.0); Neutrophils # (auto) 2.5 uL; Platelet Count (auto) 257 10^3/uL (140-450); Red Blood Cells 4.22 10^6/uL (4.5-5.90); Red Cell Distribution Width 11.9 % (11.8-14.3)
[2019-03-19 10:46] LABS: Albumin 4.4 g/dL (3.4-5.0); Calcium 9.1 mg/dL (8.5-10.1); Potassium 3.9 mmol/L (3.5-5.1)
[2019-03-19 10:49] LABS: Bilirubin, Total 0.6 mg/dL (0.2-1.0); Total Protein 7.9 g/dL (6.4-8.2)
== END | disposition home or self-care (01) ==
LOC: LAB 09:06
PROVIDERS: ATTEND Internal Medicine
DX: C61 Malignant neoplasm of prostate (principal); R97.20 Elevated prostate specific antigen [PSA]
CPT/HCPCS: 36415; 80053; 83615; 84153; 84154; 85025

== ENCOUNTER → 2019-05-29 | Outpatient (CLI) | payer OTHER | END | disposition home or self-care (01) | LOC: XYW 09:32 | PROVIDERS: ATTEND Internal Medicine | DX: I08.2 Rheumatic disorders of both aortic and tricuspid valves (principal); I25.10 Atherosclerotic heart disease of native coronary artery without angina pectoris | CPT/HCPCS: 93306 ==

== ENCOUNTER → 2019-07-17 | Outpatient (CLI) | payer OTHER ==
[2019-07-17 10:16] LABS: Basophils # (auto) 0 uL; Basophils % (auto) 0.6 % (0.0-2.0); Eosinophils # (auto) 0.1 uL; Eosinophils % (auto) 2.1 % (0.0-7.0); Hematocrit 44.1 % (41.0-53.0); Lymphocytes # (auto) 1.1 uL; Lymphocytes % (auto) 25.1 % (10.0-50.0); Mean Corpuscular Volume 97.3 fL (80.0-100.0); Monocytes # (auto) 0.4 uL; Monocytes % (auto) 8.4 % (0.0-12.0); Neutrophils # (auto) 2.9 uL; Neutrophils % (auto) 63.8 % (37.0-80.0); Nucleated Red Blood Cells % 0.1 %; Platelet Count (auto) 283 10^3/uL (140-450); Red Blood Cells 4.53 10^6/uL (4.5-5.90); White Blood Cell 4.5 10^3/uL (4.4-10.8)
[2019-07-17 10:53] LABS: Albumin 4.7 g/dL (3.4-5.0)
[2019-07-17 11:32] LABS: BUN/Creatinine Ratio 23.8; Bilirubin, Total 0.7 mg/dL (0.2-1.0); Calcium 9.5 mg/dL (8.5-10.1); Total Protein 8.5 g/dL (6.4-8.2)
[2019-07-17 11:38] LABS: Prostate Specific Antigen 4.28 ng/mL (0.0-4.0)
== END | disposition home or self-care (01) ==
LOC: LAB 09:39
PROVIDERS: ATTEND Internal Medicine
DX: C61 Malignant neoplasm of prostate (principal); E78.5 Hyperlipidemia, unspecified
CPT/HCPCS: 36415; 80053; 80061; 82728; 84153; 84154; 84443; 85025

== ENCOUNTER → 2019-12-01 | Outpatient (CLI) | payer OTHER ==
[~2019-12-01] MED LIST changes: -ASPI-404 PO; +ASPI-543 PO
[2019-12-01 10:10] LABS: Basophils # (auto) 0 10 ^3/uL (0-0.2); Eosinophils # (auto) 0.2 10 ^3/uL (0-0.8); Eosinophils % (auto) 4.9 % (0.0-7.0); Hematocrit 41.5 % (41.0-53.0); Hemoglobin 14.1 g/dL (13.5-17.5); Lymphocytes # (auto) 0.9 10 ^3/uL (0.4-5.4); Lymphocytes % (auto) 23.3 % (10.0-50.0); Mean Corpuscular Hemoglobin 33.2 pg (28.0-32.0); Mean Corpuscular Hgb Conc. 34.1 g/dL (32.0-36.0); Mean Corpuscular Volume 97.5 fL (80.0-100.0); Monocytes # (auto) 0.4 10 ^3/uL (0-1.3); Neutrophils # (auto) 2.5 10 ^3/uL (1.6-8.6); Neutrophils % (auto) 61.8 % (37.0-80.0); Nucleated Red Blood Cells % 0.1 %; Platelet Count (auto) 317 10^3/uL (140-450); Red Blood Cells 4.25 10^6/uL (4.5-5.90); Red Cell Distribution Width 12.9 % (11.8-14.3); White Blood Cell 4.1 10^3/uL (4.4-10.8)
[2019-12-01 10:21] LABS: Albumin 4.6 g/dL (3.4-5.0); Calcium 9.3 mg/dL (8.5-10.1); Potassium 3.9 mmol/L (3.5-5.1)
[2019-12-01 10:24] LABS: BUN/Creatinine Ratio 18.5; Bilirubin, Total 0.6 mg/dL (0.2-1.0)
== END | disposition home or self-care (01) ==
LOC: LAB 08:56
PROVIDERS: ATTEND Internal Medicine
DX: C61 Malignant neoplasm of prostate (principal)
CPT/HCPCS: 36415; 80053; 83615; 84153; 84154; 85025

== ENCOUNTER → 2020-03-11 | Outpatient (CLI) | payer OTHER ==
[~2020-03-11] MED LIST changes: +ALBUTEROL SULF 2.5 MG/0.5ML(0.5%) NEB SOLN ONE
== END | disposition home or self-care (01) ==
LOC: RT 08:33
PROVIDERS: ATTEND Internal Medicine
DX: J44.9 Chronic obstructive pulmonary disease, unspecified (principal); R06.02 Shortness of breath
CPT/HCPCS: 94060; 94727; 94729

== ENCOUNTER → 2020-04-25 | Outpatient (CLI) | payer OTHER ==
[~2020-04-25] MED LIST changes: -ALBUTEROL SULF 2.5 MG/0.5ML(0.5%) NEB SOLN ONE
[2020-04-25 16:17] LABS: Basophils # (auto) 0.1 10 ^3/uL (0-0.2); Basophils % (auto) 1.2 % (0.0-2.0); Eosinophils # (auto) 0.1 10 ^3/uL (0-0.8); Eosinophils % (auto) 2.1 % (0.0-7.0); Hematocrit 43.1 % (41.0-53.0); Hemoglobin 14.6 g/dL (13.5-17.5); Lymphocytes # (auto) 1.3 10 ^3/uL (0.4-5.4); Lymphocytes % (auto) 30.1 % (10.0-50.0); Mean Corpuscular Hemoglobin 33.4 pg (28.0-32.0); Mean Corpuscular Hgb Conc. 33.8 g/dL (32.0-36.0); Mean Corpuscular Volume 98.7 fL (80.0-100.0); Monocytes # (auto) 0.4 10 ^3/uL (0-1.3); Monocytes % (auto) 10.4 % (0.0-12.0); Neutrophils # (auto) 2.4 10 ^3/uL (1.6-8.6); Neutrophils % (auto) 56.2 % (37.0-80.0); Nucleated Red Blood Cells % 0.2 %; Platelet Count (auto) 291 10^3/uL (140-450); Red Blood Cells 4.36 10^6/uL (4.5-5.90); Red Cell Distribution Width 13.5 % (11.8-14.3); White Blood Cell 4.2 10^3/uL (4.4-10.8)
[2020-04-25 16:53] LABS: Potassium 4.1 mmol/L (3.5-5.1)
[2020-04-25 17:03] LABS: Albumin 4.2 g/dL (3.4-5.0); BUN/Creatinine Ratio 16.4; Bilirubin, Total 0.6 mg/dL (0.2-1.0); Calcium 9.4 mg/dL (8.5-10.1); Total Protein 7.8 g/dL (6.4-8.2)
== END | disposition home or self-care (01) ==
LOC: LAB 15:43
PROVIDERS: ATTEND Internal Medicine
DX: C61 Malignant neoplasm of prostate (principal)
CPT/HCPCS: 36415; 80053; 83615; 84153; 84154; 85025

== ENCOUNTER → 2020-10-20 | Outpatient (CLI) | payer OTHER ==
[~2020-10-20] MED LIST changes: +GEMF-19 OR; -GEMF600T7 OR; -LISI-646 PO; +LISI20TA28 PO
[2020-10-20 08:13] LABS: Eosinophils # (auto) 0.1 10 ^3/uL (0-0.8); Hemoglobin 15.2 g/dL (13.5-17.5); Lymphocytes # (auto) 1.2 10 ^3/uL (0.4-5.4); Monocytes # (auto) 0.4 10 ^3/uL (0-1.3); Neutrophils # (auto) 3.3 10 ^3/uL (1.6-8.6)
[2020-10-20 08:14] LABS: Basophils # (auto) 0.1 10 ^3/uL (0-0.2); Basophils % (auto) 1.6 % (0.0-2.0); Eosinophils % (auto) 2.5 % (0.0-7.0); Hematocrit 43.3 % (41.0-53.0); Lymphocytes % (auto) 23.8 % (10.0-50.0); Mean Corpuscular Hemoglobin 34.8 pg (28.0-32.0); Mean Corpuscular Hgb Conc. 35.2 g/dL (32.0-36.0); Mean Corpuscular Volume 98.9 fL (80.0-100.0); Monocytes % (auto) 8.7 % (0.0-12.0); Neutrophils % (auto) 63.4 % (37.0-80.0); Nucleated Red Blood Cells % 0.2 %; Platelet Count (auto) 338 10^3/uL (140-450); Red Blood Cells 4.37 10^6/uL (4.5-5.90); White Blood Cell 5.1 10^3/uL (4.4-10.8)
[2020-10-20 08:30] LABS: Calcium 9.1 mg/dL (8.5-10.1); Potassium 4.4 mmol/L (3.5-5.1)
[2020-10-20 08:36] LABS: Albumin 4.3 g/dL (3.4-5.0); BUN/Creatinine Ratio 24.2; Bilirubin, Total 0.4 mg/dL (0.2-1.0)
[2020-10-20 09:40] LABS: Ferritin 86.4 ng/mL (10-322)
[2020-10-20 09:41] LABS: Prostate Specific Antigen 3.34 ng/mL (0.0-4.0)
[2020-10-20 09:43] LABS: Folate (Folic Acid) > 24.00 ng/mL (5.38-24)
== END | disposition home or self-care (01) ==
LOC: LAB 07:38
PROVIDERS: ATTEND Internal Medicine
DX: C61 Malignant neoplasm of prostate (principal); E78.5 Hyperlipidemia, unspecified; I10 Essential (primary) hypertension; E03.9 Hypothyroidism, unspecified; E55.9 Vitamin D deficiency, unspecified
CPT/HCPCS: 36415; 80053; 80061; 82306; 82728; 82746; 83615; 84153; 84443; 85025

== ENCOUNTER 2021-02-01 12:23 | Day surgery (SDC) | payer OTHER ==
[2021-01-27 10:31] LABS: Basophils # (auto) 0 10 ^3/uL (0-0.2); Basophils % (auto) 0.8 % (0.0-2.0); Eosinophils # (auto) 0.6 10 ^3/uL (0-0.8); Hematocrit 42.1 % (41.0-53.0); Hemoglobin 14.7 g/dL (13.5-17.5); Lymphocytes # (auto) 0.7 10 ^3/uL (0.4-5.4); Lymphocytes % (auto) 11.7 % (10.0-50.0); Mean Corpuscular Hemoglobin 31.2 pg (28.0-32.0); Mean Corpuscular Hgb Conc. 34.9 g/dL (32.0-36.0); Mean Corpuscular Volume 89.5 fL (80.0-100.0); Monocytes # (auto) 0.6 10 ^3/uL (0-1.3); Neutrophils # (auto) 4.3 10 ^3/uL (1.6-8.6); Neutrophils % (auto) 69.5 % (37.0-80.0); Nucleated Red Blood Cells % 0.1 %; Red Blood Cells 4.71 10^6/uL (4.5-5.90); White Blood Cell 6.1 10^3/uL (4.4-10.8)
[2021-01-27 11:10] LABS: Albumin 3.7 g/dL (3.4-5.0); Calcium 9.1 mg/dL (8.5-10.1); Potassium 3.6 mmol/L (3.5-5.1)
[2021-01-27 11:14] LABS: BUN/Creatinine Ratio 13.4; Bilirubin, Total 0.6 mg/dL (0.2-1.0); Total Protein 7.5 g/dL (6.4-8.2)
[~2021-02-01] VITALS: Ht 180.3 cm; Wt 77.1 kg
[~2021-02-01 12:23] MED LIST changes: +CHOL100067 PO; +CYAN1TAB14 PO; +GRAP50CA PO; +HYDR25TA5 PO; +IRBE300T43 PO; -LISI20TA28 PO; +MULT-931 PO; +MULTCAP45 PO; -PAR20T PO; +PRAS10TA8 PO; +ZINC100T5 PO
[2021-02-01] MEDS ORDERED: SODIUM CHLORIDE LOCK 10 ML ONE (12:31)
[2021-02-01] MEDS: fentaNYL CITRATE 100 MCG/2 ML VL ONE ×2 (13:24→13:30)
[2021-02-01] MEDS: MIDAZOLAM HCL 5 MG/ML-1ML VIAL ONE ×2 (13:24→13:30)
[2021-02-01] MEDS: diphenhdrAMINE HCL 50 MG/1 ML VL ONE ×2 (13:27→13:32)
[2021-02-01 14:11] VITALS: BP 113/61
== END 2021-02-01 14:30 | disposition home or self-care (01) ==
LOC: GI 12:23
PROVIDERS: ATTEND Internal Medicine Gastroenterology
DX: K51.80 Other ulcerative colitis without complications (principal); K57.30 Diverticulosis of large intestine without perforation or abscess without bleeding; K64.8 Other hemorrhoids; K62.89 Other specified diseases of anus and rectum; I10 Essential (primary) hypertension; E78.00 Pure hypercholesterolemia, unspecified; K51.90 Ulcerative colitis, unspecified, without complications; J44.9 Chronic obstructive pulmonary disease, unspecified; E75.5 Other lipid storage disorders; I25.810 Atherosclerosis of coronary artery bypass graft(s) without angina pectoris; K63.89 Other specified diseases of intestine; Z20.822 Contact with and (suspected) exposure to COVID-19; Z87.891 Personal history of nicotine dependence; Z85.46 Personal history of malignant neoplasm of prostate
CPT/HCPCS: 36415; 45380; 80053; 85025; 88305; J1200; J2250; J3010; J7030; U0003; 99152

== ENCOUNTER → 2021-08-03 | Outpatient (CLI) | payer OTHER ==
[~2021-08-03] VITALS: Ht 177.8 cm; Wt 72.6 kg
[~2021-08-03] MED LIST changes: +ADENOSINE 61 MG in GIVE UN-DILUTED 0 ML IV STA
== END | disposition home or self-care (01) ==
LOC: XY 08:24
PROVIDERS: ATTEND Internal Medicine
DX: I25.810 Atherosclerosis of coronary artery bypass graft(s) without angina pectoris (principal); I42.0 Dilated cardiomyopathy; J41.0 Simple chronic bronchitis; E78.5 Hyperlipidemia, unspecified; Z95.5 Presence of coronary angioplasty implant and graft; Z95.1 Presence of aortocoronary bypass graft
CPT/HCPCS: 78452; 93017; A9500; J0153

== ENCOUNTER → 2022-04-27 | Outpatient (CLI) | payer OTHER ==
[~2022-04-27] MED LIST changes: -ADENOSINE 61 MG in GIVE UN-DILUTED 0 ML IV STA
[2022-04-27 08:28] LABS: Basophils # (auto) 0 10 ^3/uL (0-0.2); Basophils % (auto) 0.8 % (0.0-2.0); Eosinophils # (auto) 0.3 10 ^3/uL (0-0.8); Eosinophils % (auto) 5.1 % (0.0-7.0); Hematocrit 42.9 % (41.0-53.0); Hemoglobin 14.8 g/dL (13.5-17.5); Lymphocytes # (auto) 1.3 10 ^3/uL (0.4-5.4); Lymphocytes % (auto) 26.6 % (10.0-50.0); Mean Corpuscular Hemoglobin 31.7 pg (28.0-32.0); Mean Corpuscular Hgb Conc. 34.6 g/dL (32.0-36.0); Mean Corpuscular Volume 91.7 fL (80.0-100.0); Monocytes # (auto) 0.4 10 ^3/uL (0-1.3); Neutrophils # (auto) 2.9 10 ^3/uL (1.6-8.6); Neutrophils % (auto) 59.5 % (37.0-80.0); Nucleated Red Blood Cells % 0.1 %; Red Blood Cells 4.68 10^6/uL (4.5-5.90); Red Cell Distribution Width 12.4 % (11.8-14.3)
[2022-04-27 09:03] LABS: Potassium 4.2 mmol/L (3.5-5.1)
[2022-04-27 09:12] LABS: Albumin 3.9 g/dL (3.4-5.0); Bilirubin, Total 0.6 mg/dL (0.2-1.0); Calcium 9.2 mg/dL (8.5-10.1); Total Protein 7.5 g/dL (6.4-8.2)
== END | disposition home or self-care (01) ==
LOC: LAB 08:12
PROVIDERS: ATTEND Internal Medicine
DX: C61 Malignant neoplasm of prostate (principal)
CPT/HCPCS: 36415; 80053; 83615; 84153; 85025

== ENCOUNTER → 2022-08-27 | Outpatient (CLI) | payer OTHER ==
[2022-08-27 11:39] LABS: Basophils # (auto) 0 10 ^3/uL (0-0.2); Basophils % (auto) 0.5 % (0.0-2.0); Eosinophils # (auto) 0.1 10 ^3/uL (0-0.8); Eosinophils % (auto) 2.4 % (0.0-7.0); Hematocrit 41.8 % (41.0-53.0); Hemoglobin 14.5 g/dL (13.5-17.5); Lymphocytes # (auto) 1.1 10 ^3/uL (0.4-5.4); Lymphocytes % (auto) 21.1 % (10.0-50.0); Mean Corpuscular Hemoglobin 32.2 pg (28.0-32.0); Mean Corpuscular Hgb Conc. 34.8 g/dL (32.0-36.0); Mean Corpuscular Volume 92.6 fL (80.0-100.0); Monocytes # (auto) 0.5 10 ^3/uL (0-1.3); Monocytes % (auto) 8.6 % (0.0-12.0); Neutrophils # (auto) 3.5 10 ^3/uL (1.6-8.6); Neutrophils % (auto) 67.4 % (37.0-80.0); Nucleated Red Blood Cells % 0.6 %; Red Blood Cells 4.51 10^6/uL (4.5-5.90); Red Cell Distribution Width 12.7 % (11.8-14.3); White Blood Cell 5.2 10^3/uL (4.4-10.8)
[2022-08-27 12:43] LABS: Albumin 3.8 g/dL (3.4-5.0); BUN/Creatinine Ratio 18.2 (10.0-20.0); Calcium 9.1 mg/dL (8.5-10.1); Potassium 3.9 mmol/L (3.5-5.1)
[2022-08-27 12:45] LABS: Bilirubin, Total 0.4 mg/dL (0.2-1.0); Total Protein 7.5 g/dL (6.4-8.2)
== END | disposition home or self-care (01) ==
LOC: LAB 10:33
PROVIDERS: ATTEND Internal Medicine
DX: C61 Malignant neoplasm of prostate (principal)
CPT/HCPCS: 36415; 80053; 83615; 84153; 85025

== ENCOUNTER → 2022-12-17 | Outpatient (CLI) | payer OTHER ==
[~2022-12-17] MED LIST changes: +FOLI-119 PO; -FOLI1TAB6 PO; -GEMF-19 OR; +GEMF-66 OR
[2022-12-17 08:57] LABS: Basophils # (auto) 0 10 ^3/uL (0-0.2); Eosinophils # (auto) 0.2 10 ^3/uL (0-0.8); Hematocrit 40.8 % (41.0-53.0); Hemoglobin 14.3 g/dL (13.5-17.5); Lymphocytes # (auto) 1.2 10 ^3/uL (0.4-5.4); Lymphocytes % (auto) 25.5 % (10.0-50.0); Mean Corpuscular Hemoglobin 31.8 pg (28.0-32.0); Mean Corpuscular Volume 90.7 fL (80.0-100.0); Monocytes # (auto) 0.5 10 ^3/uL (0-1.3); Monocytes % (auto) 10.4 % (0.0-12.0); Neutrophils # (auto) 2.8 10 ^3/uL (1.6-8.6); Neutrophils % (auto) 59.1 % (37.0-80.0); Nucleated Red Blood Cells % 0.4 %; Red Cell Distribution Width 12.5 % (11.8-14.3); White Blood Cell 4.7 10^3/uL (4.4-10.8)
[2022-12-17 09:32] LABS: Albumin 3.7 g/dL (3.4-5.0); BUN/Creatinine Ratio 13.4 (10.0-20.0); Calcium 9.2 mg/dL (8.5-10.1)
[2022-12-17 09:45] LABS: Bilirubin, Total 0.4 mg/dL (0.2-1.0); Total Protein 7.2 g/dL (6.4-8.2)
== END | disposition home or self-care (01) ==
LOC: LAB 08:39
PROVIDERS: ATTEND Internal Medicine
DX: I10 Essential (primary) hypertension (principal); I25.810 Atherosclerosis of coronary artery bypass graft(s) without angina pectoris
CPT/HCPCS: 36415; 80053; 80061; 84153; 84443; 85025

== ENCOUNTER → 2024-01-02 | Outpatient (CLI) | payer OTHER ==
[2024-01-02 08:49] LABS: Urine Bacteria None Seen /hpf (None Seen)
[2024-01-02 09:14] LABS: Urine Blood Negative /uL (Negative); Urine Clarity Clear (Clear); Urine Color Light-Yellow (Yellow); Urine Protein, UAD TRACE (Negative); Urine Specific Gravity 1.016 (1.001-1.035); Urine Urobilinogen Normal (Negative); Urine WBC 3 /hpf (0 - 3); Urine pH 5.5 (5.0-9.0)
[2024-01-02 10:22] LABS: Creatinine, Urine 105.2 mg/dL (30.0-125.0)
== END | disposition home or self-care (01) ==
LOC: LAB 08:40
PROVIDERS: ATTEND Internal Medicine
DX: E55.9 Vitamin D deficiency, unspecified (principal); R80.9 Proteinuria, unspecified; R82.90 Unspecified abnormal findings in urine
CPT/HCPCS: 36415; 81001; 82043; 82306; 82570

== ENCOUNTER → 2024-10-14 | Outpatient (CLI) | payer OTHER ==
[~2024-10-14] MED LIST changes: -BICA50TA13 PO; +BICA50TA42 PO
[2024-10-14 08:43] LABS: Creatinine, Urine 76.02 mg/dL (30.0-125.0)
== END | disposition home or self-care (01) ==
LOC: LAB 08:01
PROVIDERS: ATTEND Internal Medicine
DX: I13.0 Hypertensive heart and chronic kidney disease with heart failure and stage 1 through stage 4 chronic kidney disease, or unspecified chronic kidney disease (principal); N18.30 Chronic kidney disease, stage 3 unspecified; I50.9 Heart failure, unspecified; E55.9 Vitamin D deficiency, unspecified; R80.9 Proteinuria, unspecified; Z13.1 Encounter for screening for diabetes mellitus; Z00.01 Encounter for general adult medical examination with abnormal findings
CPT/HCPCS: 36415; 82043; 82306; 82570

== ENCOUNTER 2025-01-21 08:21 | Outpatient (CLI) | payer OTHER ==
[2025-01-21 08:42] LABS: Hematocrit 39.1 % (41.0-53.0); Hemoglobin 13.1 g/dL (13.5-17.5); Mean Corpuscular Hemoglobin 30.6 pg (28.0-32.0); Mean Corpuscular Volume 90.9 fL (80.0-100.0); Nucleated Red Blood Cells % 0.2 %
[2025-01-21 08:52] LABS: Urine Protein, UAD TRACE (Negative)
[2025-01-21 09:26] LABS: Free T4 (Free Thyroxine) 0.92 ng/dL (0.89-1.76)
[2025-01-21 10:14] LABS: Prostate Specific Antigen 0.52 ng/mL (0.0-4.0)
[2025-01-21 14:34] LABS: Albumin 4.2 g/dL (3.2-4.8); Anion Gap 13 (5-15); BUN/Creatinine Ratio 16.1 (10.0-20.0); Bilirubin, Total 0.4 mg/dL (0.2-1.0); Calcium 9.4 mg/dL (8.7-10.4); Carbon Dioxide 23 mmol/L (20-31); Chloride 106 mmol/L (98-107); Potassium 4.8 mmol/L (3.5-5.1); Sodium 142 mmol/L (136-145); Total Protein 6.4 g/dL (5.7-8.2)
[2025-01-21 14:36] LABS: Alanine Aminotransferase < 9 U/L (7-40); Blood Urea Nitrogen 23 mg/dL (9-23); Glucose 107 mg/dL (74-106)
[2025-01-21 16:03] LABS: Alkaline Phosphatase 86 U/L (46-116); Triglycerides 146 mg/dL (< 150)
[2025-01-21 16:05] LABS: Cholesterol 132 mg/dL (< 200)
[2025-01-21 16:06] LABS: HDL Cholesterol 37 mg/dL (40-59)
== END 2025-01-21 17:00 | disposition home or self-care (01) ==
LOC: LAB 08:21
PROVIDERS: ATTEND Internal Medicine
DX: I13.0 Hypertensive heart and chronic kidney disease with heart failure and stage 1 through stage 4 chronic kidney disease, or unspecified chronic kidney disease (principal); N18.31 Chronic kidney disease, stage 3a; R80.9 Proteinuria, unspecified; R35.1 Nocturia; I50.9 Heart failure, unspecified
CPT/HCPCS: 36415; 80053; 80061; 81001; 83036; 84153; 84439; 84443; 85025

== ENCOUNTER 2025-04-07 14:04 | Outpatient (CLI) | payer OTHER ==
[2025-04-07 15:26] LABS: Anion Gap 9 (5-15); Carbon Dioxide 28 mmol/L (20-31); Chloride 103 mmol/L (98-107); Potassium 4.1 mmol/L (3.5-5.1); Sodium 140 mmol/L (136-145)
[2025-04-07 15:27] LABS: Calcium 9.4 mg/dL (8.7-10.4)
[2025-04-07 15:32] LABS: BUN/Creatinine Ratio 13.1 (10.0-20.0); Blood Urea Nitrogen 17 mg/dL (9-23); Glucose 97 mg/dL (74-106)
== END 2025-04-07 17:00 | disposition home or self-care (01) ==
LOC: LAB 14:04
PROVIDERS: ATTEND Internal Medicine
DX: I13.0 Hypertensive heart and chronic kidney disease with heart failure and stage 1 through stage 4 chronic kidney disease, or unspecified chronic kidney disease (principal); I50.9 Heart failure, unspecified; N18.32 Chronic kidney disease, stage 3b; R79.89 Other specified abnormal findings of blood chemistry; Z79.899 Other long term (current) drug therapy
CPT/HCPCS: 36415; 80048; 84153; 84443